=== PATIENT | female | born 1950 | race Two or more races ===

== ENCOUNTER 2023-06-03 20:53 | Inpatient (IN) | payer OTHER ==
[~2023-06-03] VITALS: Ht 162.6 cm; Wt 69.0 kg
[2023-06-03 21:14] VITALS: PULSE 202; RESP 27; O2SAT 95
[2023-06-03] MEDS ORDERED: dilTIAZem 25 MG/5 ML VIAL IV ONE ×2 (21:15→21:30)
[2023-06-03] MEDS ORDERED: dilTIAZem 125mg/125ml BAG KIT 125 ML IV ONE ×2 (21:20→21:30)
[2023-06-03] MEDS: ACCU-CHEK COMFORT CURVE STRIP VI SCH (21:22)
[2023-06-03] MEDS ORDERED: SODIUM CHLORIDE 0.9% 2,000 ML IV ONE (21:30)
[2023-06-03 21:44] LABS: Basophils # (auto) 0 10 ^3/uL (0-0.2); Basophils % (auto) 0.1 % (0.0-2.0); Eosinophils # (auto) 0 10 ^3/uL (0-0.8); Hemoglobin 11.2 g/dL (12.2-16.2); Monocytes # (auto) 0.3 10 ^3/uL (0-1.3)
[2023-06-03 21:45] LABS: Lymphocytes # (auto) 1.4 10 ^3/uL (0.4-5.4); Lymphocytes % (auto) 5.6 % (10.0-50.0); Mean Corpuscular Hemoglobin 22.5 pg (28.0-32.0); Mean Corpuscular Hgb Conc. 30.2 g/dL (32.0-36.0); Mean Corpuscular Volume 74.5 fL (80.0-100.0); Monocytes % (auto) 1.3 % (0.0-12.0); Neutrophils # (auto) 22.6 10 ^3/uL (1.6-8.6); Red Blood Cells 4.97 10^6/uL (4.0-5.20); Red Cell Distribution Width 18.6 % (11.8-14.3); White Blood Cell 24.2 10^3/uL (4.4-10.8)
[2023-06-03 21:59] LABS: Lactic Acid w/Reflex 5.9 mmol/L (0.4-2.0)
[2023-06-03 22:00] LABS: Alanine Aminotransferase 13 U/L (7-40); Alkaline Phosphatase 134 U/L (46-116); Anion Gap 14 (5-15); Aspartate Aminotransferase 10 U/L (13-40); BUN/Creatinine Ratio 24.3 (10.0-20.0); Bilirubin, Total 0.3 mg/dL (0.2-1.0); Blood Urea Nitrogen 28 mg/dL (9-23); Calcium 8.9 mg/dL (8.7-10.4); Carbon Dioxide 16 mmol/L (20-30); Chloride 105 mmol/L (98-107); Magnesium 1.6 mg/dL (1.6-2.6); Potassium 4.2 mmol/L (3.5-5.1); Sodium 135 mmol/L (136-145); Total Protein 5.9 g/dL (5.7-8.2)
[2023-06-03] MEDS ORDERED: PIPERACILLIN-TAZOB 3.375GM 100 ML IV ONE (22:00)
[2023-06-03 22:05] LABS: Glucose 423 mg/dL (74-106)
[2023-06-03 22:12] LABS: INR 1.05 (0.9-1.15); Partial Thromboplastin Time 24.2 SEC (24.5-34.5)
[2023-06-03] MEDS ORDERED: ONDANSETRON HCL 4 MG/2 ML VIAL IV PRN (22:45)
[2023-06-03] MEDS ORDERED: MORPHINE SULFATE INJ 2 MG/ml SYRG IV PRN (22:45)
[2023-06-03] MEDS ORDERED: NITROGLYCERIN 0.4 MG SL TAB SL PRN (22:45)
[2023-06-03] MEDS ORDERED: DEXTROSE (50%) 50ML SYRG IV PRN (22:45)
[2023-06-03] MEDS ORDERED: ACETAMINOPHEN 325 MG TAB PO PRN (22:45)
[2023-06-03 22:53] VITALS: BP 120/95; PULSE 175; RESP 24; TEMP 98.5; O2SAT 96
[2023-06-03] MEDS ORDERED: AZITHROMYCIN 500MG/ 250ML 250 ML IV ONE (23:15)
[2023-06-03 23:23] LABS: Urine Bacteria FEW /hpf (None Seen); Urine Blood Negative /uL (Negative); Urine Clarity Clear (Clear); Urine Color Colorless (Yellow); Urine Protein, UAD Negative (Negative); Urine Specific Gravity 1.009 (1.001-1.035); Urine Urobilinogen Normal (Negative); Urine WBC 1 /hpf (0 - 5)
[2023-06-04] VITALS (8 sets, daily range): BP systolic 123; BP diastolic 68; PULSE 74–90; RESP 18–33; TEMP 97.9; O2SAT 95–100
[2023-06-04] MEDS: InsuLIN REG 1unit/0.01ml Soln (100units/ml) SC SCH ×6 (01:51→23:37)
[2023-06-04] MEDS: ACCU-CHEK COMFORT CURVE STRIP VI SCH ×7 (04:00→23:33)
[2023-06-04 05:07] LABS: Basophils # (auto) 0 10 ^3/uL (0-0.2); Eosinophils # (auto) 0 10 ^3/uL (0-0.8); Lymphocytes # (auto) 1.5 10 ^3/uL (0.4-5.4); Mean Corpuscular Hemoglobin 22.6 pg (28.0-32.0)
[2023-06-04 05:10] LABS: Hematocrit 33.4 % (36.0-46.0); Hemoglobin 10.1 g/dL (12.2-16.2); Lymphocytes % (auto) 6.6 % (10.0-50.0); Mean Corpuscular Hgb Conc. 30.4 g/dL (32.0-36.0); Mean Corpuscular Volume 74.3 fL (80.0-100.0); Monocytes # (auto) 0.9 10 ^3/uL (0-1.3); Monocytes % (auto) 4.1 % (0.0-12.0); Neutrophils # (auto) 19.8 10 ^3/uL (1.6-8.6); Neutrophils % (auto) 89.3 % (37.0-80.0); Red Blood Cells 4.49 10^6/uL (4.0-5.20); Red Cell Distribution Width 18.5 % (11.8-14.3); White Blood Cell 22.2 10^3/uL (4.4-10.8)
[2023-06-04] MEDS ORDERED: ALBUMIN 25% 100 ML IV ONE (05:30)
[2023-06-04 05:32] LABS: Alanine Aminotransferase 14 U/L (7-40); Albumin 3.4 g/dL (3.2-4.8); Alkaline Phosphatase 111 U/L (46-116); Anion Gap 12 (5-15); Aspartate Aminotransferase < 8 U/L (13-40); BUN/Creatinine Ratio 28.6 (10.0-20.0); Bilirubin, Total 0.2 mg/dL (0.2-1.0); Blood Urea Nitrogen 28 mg/dL (9-23); Calcium 8.3 mg/dL (8.7-10.4); Carbon Dioxide 18 mmol/L (20-30); Chloride 111 mmol/L (98-107); Glucose 283 mg/dL (74-106); Potassium 4.1 mmol/L (3.5-5.1); Sodium 141 mmol/L (136-145)
[2023-06-04] MEDS: LEVOTHYROXINE SODIUM 25 MCG TAB PO SCH (06:58)
[2023-06-04] MEDS ORDERED: PHENYLEPHRINE IV 250 ML IV SCH (07:00)
[2023-06-04] MEDS ORDERED: LEVOTHYROXINE SODIUM 25 MCG TAB PO SCH (07:00)
[2023-06-04] MEDS ORDERED: MAGNESIUM SULFATE 1GM/100ML 100 ML IV ONE (07:30)
[2023-06-04] MEDS ORDERED: AMIODARONE BOLUS KIT 100 ML IV ONE (07:30)
[2023-06-04 07:45] LABS: Triglycerides 170 mg/dL (< 150)
[2023-06-04] MEDS ORDERED: AMIODARONE 450mg/250ml AE 250 ML IV SCH (07:45)
[2023-06-04 07:46] LABS: LDL Cholesterol 62 mg/dL (< 100)
[2023-06-04 07:47] LABS: Cholesterol 130 mg/dL (< 200); HDL Cholesterol 52 mg/dL (40-59)
[2023-06-04] MEDS ORDERED: cefTRIAXone 1GM/50ML D5W 50 ML IV SCH (09:00)
[2023-06-04] MEDS: ENOXAPARIN SOD 100 MG/1 ML SYRINGE SC SCH ×2 (09:52→23:10)
[2023-06-04] MEDS ORDERED: dilTIAZem 120MG ER CAP PO SCH (10:00)
[2023-06-04] MEDS ORDERED: ENOXAPARIN SOD 40 MG/0.4 ML SYRINGE SC SCH (10:00)
[2023-06-04] MEDS ORDERED: ENOXAPARIN SOD 30 MG/0.3 ML SYRINGE SC SCH (10:00)
[2023-06-04] MEDS: TACROLIMUS 1 MG CAP PO SCH ×2 (10:38→23:13)
[2023-06-04] MEDS: MYCOPHENOLATE 250 MG CAP PO SCH ×2 (10:39→23:20)
[2023-06-04] MEDS ORDERED: ALBUTEROL MEDNEB 2.5 mg/3ml NEB ONE ×2 (13:33→19:02)
[2023-06-04] MEDS: ALBUTEROL SULF 2.5 MG/0.5ML(0.5%) NEB SOLN NEB PRN ×2 (13:35→19:15)
[2023-06-04] MEDS: AMIODARONE 450mg/250ml AE 250 ML IV SCH (14:03)
[2023-06-04] MEDS ORDERED: CEFEPIME 1GM/ 50ML 50 ML IV ONE (14:30)
[2023-06-04] MEDS ORDERED: DEXTROSE (50%) 50ML SYRG IV PRN (14:30)
[2023-06-04] MEDS ORDERED: VANCOMYCIN PER PHARMACY 0 MG IV SCH (14:30)
[2023-06-04] MEDS: VANCOMYCIN 1GM/250ML 250 ML IV SCH (15:58)
[2023-06-04] MEDS ORDERED: NITROGLYCERIN 2% OINT 1GM PKG TD ONE (21:00)
[2023-06-04] MEDS ORDERED: AZITHROMYCIN 500MG/ 250ML 250 ML IV SCH (22:00)
[2023-06-04] MEDS: ATORVASTATIN 20 MG TAB PO SCH (23:11)
[2023-06-04] MEDS: CEFEPIME 1GM/ 50ML 50 ML IV SCH (23:59)
[2023-06-05] VITALS (8 sets, daily range): BP systolic 121–149; BP diastolic 72–87; PULSE 71–87; RESP 18–20; TEMP 97.4–98.6; O2SAT 94–100
[2023-06-05] MEDS: AMIODARONE 450mg/250ml AE 250 ML IV SCH (01:51)
[2023-06-05] MEDS: CEFEPIME 1GM/ 50ML 50 ML IV SCH ×4 (05:25→22:23)
[2023-06-05] MEDS: VANCOMYCIN 1GM/250ML 250 ML IV SCH ×2 (06:22→23:00)
[2023-06-05] MEDS: LEVOTHYROXINE SODIUM 25 MCG TAB PO SCH (06:23)
[2023-06-05 06:44] LABS: Basophils # (auto) 0 10 ^3/uL (0-0.2); Eosinophils # (auto) 0.3 10 ^3/uL (0-0.8); Hemoglobin 10.6 g/dL (12.2-16.2); Nucleated Red Blood Cells % 0.1 %; Red Cell Distribution Width 18.6 % (11.8-14.3)
[2023-06-05] MEDS: InsuLIN REG 1unit/0.01ml Soln (100units/ml) SC SCH ×4 (06:45→22:29)
[2023-06-05] MEDS: ACCU-CHEK COMFORT CURVE STRIP VI SCH ×5 (06:45→22:30)
[2023-06-05 06:47] LABS: Basophils % (auto) 0.1 % (0.0-2.0); Eosinophils % (auto) 1.6 % (0.0-7.0); Hematocrit 34.6 % (36.0-46.0); Lymphocytes # (auto) 2.5 10 ^3/uL (0.4-5.4); Lymphocytes % (auto) 15.4 % (10.0-50.0); Mean Corpuscular Hemoglobin 22.7 pg (28.0-32.0); Mean Corpuscular Hgb Conc. 30.8 g/dL (32.0-36.0); Mean Corpuscular Volume 73.6 fL (80.0-100.0); Monocytes # (auto) 0.9 10 ^3/uL (0-1.3); Monocytes % (auto) 5.8 % (0.0-12.0); Neutrophils # (auto) 12.4 10 ^3/uL (1.6-8.6); Neutrophils % (auto) 77.1 % (37.0-80.0); Red Blood Cells 4.69 10^6/uL (4.0-5.20)
[2023-06-05 07:00] LABS: Alanine Aminotransferase 12 U/L (7-40); Albumin 3.8 g/dL (3.2-4.8); Alkaline Phosphatase 83 U/L (46-116); Anion Gap 10 (5-15); Aspartate Aminotransferase 12 U/L (13-40); BUN/Creatinine Ratio 15.6 (10.0-20.0); Bilirubin, Total 0.6 mg/dL (0.2-1.0); Blood Urea Nitrogen 14 mg/dL (9-23); Calcium 8.7 mg/dL (8.5-10.1); Carbon Dioxide 24 mmol/L (20-30); Chloride 108 mmol/L (98-107); Glucose 130 mg/dL (74-106); Potassium 3.3 mmol/L (3.5-5.1); Sodium 142 mmol/L (136-145); Total Protein 5.5 g/dL (5.7-8.2)
[2023-06-05] MEDS ORDERED: POTASSIUM EFFERVESENT TAB 25 MEQ PO ONE (08:00)
[2023-06-05] MEDS: AMIODARONE HCL 200 MG TAB PO SCH ×2 (08:42→22:02)
[2023-06-05] MEDS: MYCOPHENOLATE 250 MG CAP PO SCH ×2 (08:42→22:00)
[2023-06-05] MEDS: TACROLIMUS 1 MG CAP PO SCH ×2 (08:43→22:00)
[2023-06-05] MEDS: METOPROLOL TARTRATE 25 MG TAB PO SCH ×2 (08:43→21:57)
[2023-06-05] MEDS: APIXABAN 5 MG TAB PO SCH ×2 (08:43→22:04)
[2023-06-05] MEDS ORDERED: AZIT-81 PO (16:30)
[2023-06-05] MEDS: ATORVASTATIN 20 MG TAB PO SCH (21:57)
[2023-06-06 05:00] VITALS: BP 125/81; PULSE 85; RESP 17; TEMP 97.3; O2SAT 95
[2023-06-06] MEDS: CEFEPIME 1GM/ 50ML 50 ML IV SCH (05:11)
[2023-06-06] MEDS: ACCU-CHEK COMFORT CURVE STRIP VI SCH ×2 (06:27→11:30)
[2023-06-06] MEDS: LEVOTHYROXINE SODIUM 25 MCG TAB PO SCH (06:27)
[2023-06-06] MEDS: InsuLIN REG 1unit/0.01ml Soln (100units/ml) SC SCH ×2 (06:32→11:30)
[2023-06-06 08:00] VITALS: PULSE 79; PULSE 80; RESP 17; O2SAT 100
[2023-06-06 08:57] VITALS: BP 136/94; PULSE 79; RESP 17; TEMP 97.9; O2SAT 100
[2023-06-06] MEDS: APIXABAN 5 MG TAB PO SCH ×2 (09:33→09:40)
[2023-06-06] MEDS: METOPROLOL TARTRATE 25 MG TAB PO SCH (09:33)
[2023-06-06] MEDS: AMIODARONE HCL 200 MG TAB PO SCH (09:35)
[2023-06-06] MEDS: TACROLIMUS 1 MG CAP PO SCH (09:41)
[2023-06-06] MEDS: MYCOPHENOLATE 250 MG CAP PO SCH (09:41)
[2023-06-06 10:51] VITALS: BP 136/94; PULSE 79; TEMP 36.6
[2023-06-06 13:00] VITALS: BP 117/73; PULSE 84; RESP 18; TEMP 98.4; O2SAT 97
== END 2023-06-06 14:15 | disposition home or self-care (01) | DRG 871 ==
LOC: EDBD 20:53 → ER 20:53 → TELE 22:41 → TELE-CENTR 06-04 21:45
PROVIDERS: ADMIT Nurse Practitioner; ATTEND Internal Medicine
DX: A41.9 Sepsis, unspecified organism (principal); J15.69 Pneumonia due to other Gram-negative bacteria; J96.20 Acute and chronic respiratory failure, unspecified whether with hypoxia or hypercapnia; J15.9 Unspecified bacterial pneumonia; J44.0 Chronic obstructive pulmonary disease with (acute) lower respiratory infection; I13.0 Hypertensive heart and chronic kidney disease with heart failure and stage 1 through stage 4 chronic kidney disease, or unspecified chronic kidney disease; M33.90 Dermatopolymyositis, unspecified, organ involvement unspecified; E86.0 Dehydration; K74.60 Unspecified cirrhosis of liver; N18.9 Chronic kidney disease, unspecified; E03.9 Hypothyroidism, unspecified; E11.22 Type 2 diabetes mellitus with diabetic chronic kidney disease; E78.5 Hyperlipidemia, unspecified; I50.9 Heart failure, unspecified; J84.10 Pulmonary fibrosis, unspecified; I48.0 Paroxysmal atrial fibrillation; Z99.81 Dependence on supplemental oxygen
CPT/HCPCS: 36415; 71045; 71250; 80053; 80061; 81001; 82962; 83036; 83605; 83735; 83880; 84443; 84484; 85025; 85379; 85610; 85730; 87040; 87081; 93005; 93306; 94640; G0378; J0696; J1815; J2543; J7507; J7517; P9047

== ENCOUNTER 2024-04-28 15:41 | Inpatient (IN) | payer OTHER ==
[~2024-04-28] VITALS: Ht 165.1 cm; Wt 63.3 kg
[~2024-04-28 15:41] MED LIST: ALBU108A5 IN; AZIT-185 PO; BENZ100C97 PO; FLUT250M2 INH; GUAI100S6 PO; INSREG3 IV; IPRIH INH; LEVO50TA7 PO; METF-370 PO; MYCO500T PO; NALO4SPR2; OMEP20TA PO; PRE5T PO; TACR1GRA PO; URSO1TAB7 PO
[2024-04-28] MEDS: cefTRIAXone 1GM/50ML D5W 50 ML IV ONE (16:15)
[2024-04-28 16:46] VITALS: PULSE 107; RESP 44; O2SAT 96
[2024-04-28 17:02] LABS: Basophils # (auto) 0.1 10 ^3/uL (0-0.2); Eosinophils # (auto) 0.5 10 ^3/uL (0-0.8); Eosinophils % (auto) 4.3 % (0.0-7.0); Hemoglobin 12.1 g/dL (12.2-16.2); Lymphocytes # (auto) 2.3 10 ^3/uL (0.4-5.4); Lymphocytes % (auto) 21.9 % (10.0-50.0); Mean Corpuscular Hemoglobin 25.2 pg (28.0-32.0); Mean Corpuscular Hgb Conc. 32.5 g/dL (32.0-36.0); Mean Corpuscular Volume 77.3 fL (80.0-100.0); Monocytes # (auto) 0.6 10 ^3/uL (0-1.3); Monocytes % (auto) 5.8 % (0.0-12.0); Neutrophils # (auto) 7.1 10 ^3/uL (1.6-8.6); Nucleated Red Blood Cells % 0.2 %; Platelet Count (auto) 274 10^3/uL (140-450); Red Blood Cells 4.79 10^6/uL (4.0-5.20); Red Cell Distribution Width 17.4 % (11.8-14.3); White Blood Cell 10.6 10^3/uL (4.4-10.8)
[2024-04-28 17:13] LABS: Albumin 3.8 g/dL (3.2-4.8); Alkaline Phosphatase 148 U/L (46-116); Anion Gap 10 (5-15); Aspartate Aminotransferase 47 U/L (13-40); Carbon Dioxide 23 mmol/L (20-31); Chloride 105 mmol/L (98-107); Glucose 104 mg/dL (74-106); Magnesium 1.8 mg/dL (1.6-2.6); Sodium 138 mmol/L (136-145)
[2024-04-28 17:14] LABS: Bilirubin, Total 0.3 mg/dL (0.2-1.0)
[2024-04-28 17:15] LABS: Urine Bacteria None Seen /hpf (None Seen)
[2024-04-28 17:16] LABS: Alanine Aminotransferase 15 U/L (7-40); BUN/Creatinine Ratio 15.3 (10.0-20.0); Blood Urea Nitrogen 11 mg/dL (9-23); Potassium 4.2 mmol/L (3.5-5.1)
[2024-04-28 17:18] LABS: INR 1.22 (0.9-1.15); Partial Thromboplastin Time 37.5 SEC (24.5-34.5); Prothrombin Time 12.7 sec (9.3-11.8)
[2024-04-28 17:27] LABS: Urine Blood Negative /uL (Negative); Urine Clarity Clear (Clear); Urine Color Yellow (Yellow); Urine Mucus FEW (None Seen); Urine Protein, UAD TRACE (Negative); Urine Specific Gravity 1.018 (1.001-1.035); Urine Urobilinogen Normal (Negative); Urine WBC 2 /hpf (0 - 5); Urine pH 6.5 (5.0-9.0)
[2024-04-28 18:15] LABS: COVID19 ANTIGEN SOFIA FIA NEGATIVE (NEGATIVE); Rapid Influenza A Negative (Negative); Rapid Influenza B Negative (Negative)
[2024-04-28] MEDS: ALBUTEROL SULF 2.5 MG/0.5ML(0.5%) NEB SOLN HHN ONE (20:07)
[2024-04-28] MEDS: IPRATROPIUM BROM 0.5 MG/2.5ML INH SOL HHN ONE (20:07)
[2024-04-28] MEDS: methylPREDNISolone SOD SUCC 125 MG/2 ML VL IV ONE (20:31)
[2024-04-28] MEDS: ONDANSETRON HCL 4 MG/2 ML VIAL IV ONE (20:35)
[2024-04-28] MEDS: MORPHINE SULFATE 4 MG/ML SYR/VIAL IV ONE (20:35)
[2024-04-29] VITALS (7 sets, daily range): BP systolic 106–144; BP diastolic 59–80; PULSE 62–108; RESP 16–25; TEMP 97.5–99; O2SAT 95–100
[2024-04-29] MEDS ORDERED: ONDANSETRON HCL 4 MG/2 ML VIAL IV PRN (01:00)
[2024-04-29] MEDS ORDERED: NITROGLYCERIN 0.4 MG SL TAB SL PRN (01:00)
[2024-04-29] MEDS ORDERED: HYDROcodone-ACET 5/325MG TAB PO PRN (01:00)
[2024-04-29] MEDS ORDERED: MORPHINE SULFATE INJ 2 MG/ml SYRG IV PRN (01:00)
[2024-04-29] MEDS ORDERED: DOCUSATE SOD 100 MG CAP PO PRN (01:00)
[2024-04-29] MEDS: ALBUTEROL SULF 2.5 MG/0.5ML(0.5%) NEB SOLN NEB ONE (01:03)
[2024-04-29] MEDS: IPRATROPIUM BROM 0.5 MG/2.5ML INH SOL NEB ONE (01:03)
[2024-04-29] MEDS: DOXYCYCLINE 100MG/250ML 250 ML IV SCH (01:42)
[2024-04-29 04:23] LABS: Basophils # (auto) 0 10 ^3/uL (0-0.2); Basophils % (auto) 0.1 % (0.0-2.0); Eosinophils # (auto) 0 10 ^3/uL (0-0.8); Eosinophils % (auto) 0.1 % (0.0-7.0); Hemoglobin 12.1 g/dL (12.2-16.2); Lymphocytes # (auto) 0.4 10 ^3/uL (0.4-5.4); Lymphocytes % (auto) 6.8 % (10.0-50.0); Mean Corpuscular Hemoglobin 24.4 pg (28.0-32.0); Mean Corpuscular Hgb Conc. 29.4 g/dL (32.0-36.0); Monocytes # (auto) 0.1 10 ^3/uL (0-1.3); Monocytes % (auto) 0.9 % (0.0-12.0); Neutrophils # (auto) 5.4 10 ^3/uL (1.6-8.6); Neutrophils % (auto) 92.1 % (37.0-80.0); Nucleated Red Blood Cells % 0.1 %; Platelet Count (auto) 208 10^3/uL (140-450); Red Blood Cells 4.94 10^6/uL (4.0-5.20); Red Cell Distribution Width 18.8 % (11.8-14.3); White Blood Cell 5.9 10^3/uL (4.4-10.8)
[2024-04-29 04:36] LABS: Alanine Aminotransferase 13 U/L (7-40); Alkaline Phosphatase 146 U/L (46-116); Anion Gap 11 (5-15); BUN/Creatinine Ratio 10.6 (10.0-20.0); Blood Urea Nitrogen 9 mg/dL (9-23); Calcium 9.1 mg/dL (8.7-10.4); Carbon Dioxide 21 mmol/L (20-31); Chloride 105 mmol/L (98-107); Glucose 215 mg/dL (74-106); Potassium 4.2 mmol/L (3.5-5.1); Sodium 137 mmol/L (136-145)
[2024-04-29 04:37] LABS: Albumin 3.8 g/dL (3.2-4.8); Aspartate Aminotransferase 30 U/L (13-40); Bilirubin, Total 0.2 mg/dL (0.2-1.0); Total Protein 6.5 g/dL (5.7-8.2)
[2024-04-29] MEDS: methylPREDNISolone SOD SUCC 40 MG/ML VL IV SCH (05:34)
[2024-04-29] MEDS: LEVOTHYROXINE SODIUM 50 MCG TAB PO SCH (05:43)
[2024-04-29] MEDS: SODIUM CHLOR 0.9% PF (SALINE LOCK) 10ML VIAL/SYR IV SCH (05:49)
[2024-04-29] MEDS: FAMOTIDINE (10MG/ML) 2ML VL IV SCH (10:00)
[2024-04-29] MEDS: ASPirin 81 mg TAB PO SCH (10:00)
[2024-04-29] MEDS: ACETAMINOPHEN 325 MG TAB PO PRN (18:41)
[2024-04-29] MEDS: IPRATROPIUM BROM 0.5 MG/2.5ML INH SOL NEB SCH (18:54)
[2024-04-30] VITALS (13 sets, daily range): BP systolic 101–132; BP diastolic 63–66; PULSE 52–91; RESP 16–24; TEMP 97.6–98.1; O2SAT 94–100
[2024-04-30 06:08] LABS: Basophils # (auto) 0 10 ^3/uL (0-0.2); Basophils % (auto) 0.1 % (0.0-2.0); Eosinophils # (auto) 0 10 ^3/uL (0-0.8); Hemoglobin 11.6 g/dL (12.2-16.2); Monocytes # (auto) 0.2 10 ^3/uL (0-1.3); Red Cell Distribution Width 17.1 % (11.8-14.3)
[2024-04-30 06:11] LABS: Hematocrit 35.1 % (36.0-46.0); Lymphocytes # (auto) 1.2 10 ^3/uL (0.4-5.4); Lymphocytes % (auto) 11.7 % (10.0-50.0); Mean Corpuscular Hemoglobin 25.3 pg (28.0-32.0); Mean Corpuscular Hgb Conc. 32.9 g/dL (32.0-36.0); Mean Corpuscular Volume 76.8 fL (80.0-100.0); Monocytes % (auto) 1.7 % (0.0-12.0); Neutrophils # (auto) 8.8 10 ^3/uL (1.6-8.6); Neutrophils % (auto) 86.5 % (37.0-80.0); Platelet Count (auto) 240 10^3/uL (140-450); Red Blood Cells 4.57 10^6/uL (4.0-5.20); White Blood Cell 10.2 10^3/uL (4.4-10.8)
[2024-04-30 06:32] LABS: Alanine Aminotransferase < 9 U/L (7-40); Alkaline Phosphatase 125 U/L (46-116); Anion Gap 9 (5-15); BUN/Creatinine Ratio 13.9 (10.0-20.0); Blood Urea Nitrogen 10 mg/dL (9-23); Calcium 9.4 mg/dL (8.7-10.4); Carbon Dioxide 22 mmol/L (20-31); Chloride 104 mmol/L (98-107); Glucose 183 mg/dL (74-106); Potassium 4.4 mmol/L (3.5-5.1); Sodium 135 mmol/L (136-145)
[2024-04-30 06:33] LABS: Albumin 3.9 g/dL (3.2-4.8); Aspartate Aminotransferase 16 U/L (13-40); Bilirubin, Total 0.3 mg/dL (0.2-1.0)
[2024-04-30 06:34] LABS: Total Protein 6.2 g/dL (5.7-8.2)
[2024-04-30] MEDS: ALBUTEROL SULF 2.5 MG/0.5ML(0.5%) NEB SOLN NEB PRN (06:53)
[2024-04-30] MEDS ORDERED: DEXTROSE (50%) 50ML SYRG IV PRN (10:00)
[2024-04-30] MEDS: ACCU-CHEK COMFORT CURVE STRIP VI SCH (11:50)
[2024-04-30] MEDS: DABIGATRAN 75 MG CAP PO SCH (11:50)
[2024-04-30] MEDS: InsuLIN REG 1unit/0.01ml Soln (100units/ml) SC SCH (12:16)
[2024-04-30] MEDS ORDERED: InsuLIN REG 1unit/0.01ml Soln (100units/ml) SC SCH (22:00)
== END 2024-04-30 17:00 | disposition short-term general hospital (02) | DRG 189 ==
LOC: EDBD 15:41 → ER 15:41 → TELE 04-29 01:08 → TELE-EAST 04-29 10:27
PROVIDERS: ADMIT Nurse Practitioner Family; ATTEND Family Medicine
DX: J96.01 Acute respiratory failure with hypoxia (principal); J15.69 Pneumonia due to other Gram-negative bacteria; J15.9 Unspecified bacterial pneumonia; E44.0 Moderate protein-calorie malnutrition; K21.9 Gastro-esophageal reflux disease without esophagitis; Z20.822 Contact with and (suspected) exposure to COVID-19; J84.10 Pulmonary fibrosis, unspecified; K74.60 Unspecified cirrhosis of liver; F41.9 Anxiety disorder, unspecified; E03.9 Hypothyroidism, unspecified; E11.65 Type 2 diabetes mellitus with hyperglycemia; Z87.442 Personal history of urinary calculi; Z86.711 Personal history of pulmonary embolism; Z90.710 Acquired absence of both cervix and uterus; Z88.1 Allergy status to other antibiotic agents; Z68.23 Body mass index [BMI] 23.0-23.9, adult; M19.90 Unspecified osteoarthritis, unspecified site
CPT/HCPCS: 36415; 71045; 71250; 80053; 81001; 82962; 83605; 83735; 83880; 84443; 84484; 85025; 85379; 85610; 85730; 87040; 87081; 87426; 87804; 94640; 96365; 96366; 96375; 99291; G0378; J1815; J2405; J3490

== ENCOUNTER 2024-08-04 10:37 | Inpatient (IN) | payer OTHER ==
[~2024-08-04] VITALS: Ht 165.1 cm; Wt 55.8 kg
[2024-08-04] MEDS: ALBUTEROL SULF 2.5 MG/0.5ML(0.5%) NEB SOLN NEB ONE (11:31)
[2024-08-04] MEDS: IPRATROPIUM BROM 0.5 MG/2.5ML INH SOL NEB ONE (11:31)
--- NOTE | 2024-08-04 11:36 | ED.PDOC ---
SOB-HPI HPI Comments 74 Y F with PMHX of PE on home O2, liver disease, GERD, kidney stones brought in by EMS with CC of SOB. Patient states, that she has been experiencing SOB x1 week with associated symptoms of chest pain, cough, and fever. History is limited due to severity of symptoms, as patient is repetitively coughing. Chief Complaint: Shortness of Breath Time Seen by MD: 11:00 Primary Care Provider: ANIA Bui notes: Nurses Notes, Medications, Allergies Information Source: Patient, Emergency Med Personnel Mode of Arrival: EMS Severity: Mild Timing: Weeks Duration: Since onset PE Risk Factors: None History of: None Prehospital treatment: None Associated Signs and Symptoms: Cough, Chest Pain Past Medical History PAST MEDICAL HISTORY: Arthritis, GERD, Kidney Stones, Liver, MRSA, PE Surgical History: Hysterectomy CLINICAL BIOSTATISTICIAN History: No Pertinent CLINICAL BIOSTATISTICIAN History Family History Family History: Unknown Social History Alcohol: Denies ETOH Use Drugs: Denies Drug Use Lives In: Home Constitutional: reports: fever; denies: chills, diaphoresis, fatigue, malaise, sweats, weakness, others EENTM: denies: blurred vision, double vision, ear bleeding, ear discharge, ear drainage, ear pain, ear ringing, eye pain, eye redness, hearing loss, mouth pain, mouth swelling, nasal discharge, nose bleeding, nose congestion, nose pain, photophobia, tearing, throat pain, throat swelling, voice changes, others Respiratory: reports: cough; denies: hemoptysis, orthopnea, SOB at rest, shortness of breath, SOB with excertion, stridor, wheezing, others Cardiovascular: reports: chest pain; denies: dizzy spells, diaphoresis, Dyspnea on exertion, edema, irregular heart beat, left arm pain, lightheadedness, palpitations, PND, syncope, others Gastrointestinal: denies: abdomen distended, abdominal pain, blood streaked bowels, constipated, diarrhea, dysphagia, difficulty swallowing, hematemesis, melena, nausea, poor appetite, poor fluid intake, rectal bleeding, rectal pain, vomiting, others Genitourinary: denies: abnormal vagina bleeding, burning, dyspareunia, dysuria, flank pain, frequency, hematuria, incontinence, pain, , vagina discharge, urgency, others Neurological: denies: dizziness, fainting, headache, left sided numbness, left sided weakness, numbness, paresthesia, pre-existing deficit, right sided numbness, right sided weakness, seizure, speech problems, tingling, tremors, weakness, others Musculoskeletal: denies: back pain, gout, joint pain, joint swelling, muscle pain, muscle stiffness, neck pain, others Integumetry: denies: bruises, change in color, change in hair/nails, dryness, laceration, lesions, lumps, rash, wounds, others Allergic/Immunocompromised: denies: Difficulty Healing, Frequent Infections, Hives, Itching, others Hematologic/Lymphatic: denies: anemia, blood clots, easy bleeding, easy bruising, swollen glands, others Endocrine: denies: excessive hunger, excessive sweating, excessive thirst, excessive urination, flushing, intolerance to cold, intolerance to heat, unexplained weight gain, unexplained weight loss, others Psychiatric: denies: anxiety, bipolar disorder, depression, hopeless, panic disorder, schizophrenia, sleepless, suicidal, others All Other Systems: Reviewed and Negative Physical Exam General Appearance: Moderate Distress HEENT: Other (Pupils symmetric, face symmetric, dry mucous membranes) Neck: Full Range of Motion, Normal Inspection Respiratory: Accessory Muscle Use, Crackles, Rales, Respiratory Distress Cardiovascular: No Edema, No JVD, Tachycardia Breast Exam: Deferred Gastrointestinal: Non Tender, Soft Genitalia: Deferred Pelvic: Deferred Rectal: Deferred Extremities: Normal inspection, Normal range of motion, Non-tender, No pedal edema Neurologic: Alert, Other (Moves all extremities, no gross focal deficit, appears anxious) Cerebellar Function: NOT DONE Reflexes: NOT DONE Skin: Dry, Pallor, Warm Lymphatic: NOT DONE EKG EKG : Comments Sinus tach, rate 134, normal intervals, left axis deviation, old inferior or anterolateral infarct, nonspecific T changes. Was a procedure done? Was a procedure done?: No Differential Dx Differential Diagnosis: Bronchitis, CHF, COPD, Hyperventilation, Myocardial infarction, Panic Attack, Pneumonia, Pneumothorax, Respiratory Distress, Sinusitis, URI X-Ray, Labs, Meds, VS Vital Signs Date Time Temp Pulse Resp B/P (MAP) Pulse Ox O2 Delivery O2 Flow Rate FiO2 08/04/24 20:03 97.9 111 16 96/57 (70) 96 97.9 08/04/24 17:00 106 20 112/75 (87) 99 08/04/24 16:13 109 18 98/56 (70) 98 08/04/24 15:01 120 16 124/82 (96) 08/04/24 13:08 129 24 117/72 (87) 100 08/04/24 11:38 129 35 122/80 (94) 99 08/04/24 11:38 129 33 99 Nasal Cannula* 4 36 08/04/24 11:31 20 100 Nasal Cannula* 4 36 08/04/24 10:41 134 08/04/24 10:38 97.9 137 40 88/57 (67) 92 08/04/24 10:38 40 Nasal Cannula* 4 36 08/04/24 10:38 Nasal Cannula* 4 36 Lab Test 08/04/24 17:00 08/04/24 14:30 08/04/24 13:26 08/04/24 11:45 Range/Units Urine Color Yellow Yellow Urine Clarity Clear Clear Urine pH 6.5 5.0-9.0 Urine Specific [place] 1.021 1.001-1.035 Urine Protein Trace H Negative Urine Ketones Negative Negative Urine Blood Negative Negative /uL Urine Nitrite Negative Negative Urine Bilirubin Negative Negative Urine Urobilinogen Normal Negative mg/dL Urine Leukocyte Esterase 3+ Negative /uL Urine RBC 4 0 - 4 /hpf Urine WBC 39 0 - 5 /hpf Urine Squamous Epithelial Cells Few <5 /hpf Urine Bacteria Few H None Seen /hpf Urine Mucus Few None Seen Urine Glucose Normal Normal mg/dL Troponin I High Sensitivity 67 *H 73 *H </=34 ng/L Lactic Acid Level 2.2 *H 0.4-2.0 mmol/L Influenza Type A Antigen Negative Negative Influenza Type B Antigen Negative Negative SARS-CoV-2 Antigen (Rapid) Negative NEGATIVE Test 08/04/24 11:42 Range/Units White Blood Count 16.0 H 4.4-10.8 10^3/uL Red Blood Count 5.63 H 4.0-5.20 10^6/uL Hemoglobin 13.6 12.2-16.2 g/dL Hematocrit 42.6 36.0-46.0 % Mean Corpuscular Volume 75.7 L 80.0-100.0 fL Mean Corpuscular Hemoglobin 24.2 L 28.0-32.0 pg Mean Corpuscular Hemoglobin Concent 31.9 L 32.0-36.0 g/dL Red Cell Distribution Width 17.5 H 11.8-14.3 % Platelet Count 346 140-450 10^3/uL Mean Platelet Volume 8.6 6.9-10.8 fL Neutrophils (%) (Auto) 87.8 H 37.0-80.0 % Lymphocytes (%) (Auto) 5.9 L 10.0-50.0 % Monocytes (%) (Auto) 4.9 0.0-12.0 % Eosinophils (%) (Auto) 0.7 0.0-7.0 % Basophils (%) (Auto) 0.7 0.0-2.0 % Neutrophils # (Auto) 14.0 H 1.6-8.6 10 ^3/uL Lymphocytes # (Auto) 0.9 0.4-5.4 10 ^3/uL Monocytes # (Auto) 0.8 0-1.3 10 ^3/uL Eosinophils # (Auto) 0.1 0-0.8 10 ^3/uL Basophils # (Auto) 0.1 0-0.2 10 ^3/uL Nucleated Red Blood Cells 0.1 % Platelet Estimate Adequate Clumped Platelets None Giant Platelets Hypochromasia (manual) Slight Microcytosis Slight Sodium Level 134 L 136-145 mmol/L Potassium Level 4.3 3.5-5.1 mmol/L Chloride Level 100 98-107 mmol/L Carbon Dioxide Level 26 20-31 mmol/L Anion Gap 8 5-15 Blood Urea Nitrogen 8 L 9-23 mg/dL Creatinine 0.61 0.550-1.02 mg/dL Glomerular Filtration Rate Calc 95 >90 mL/min BUN/Creatinine Ratio 13.1 10.0-20.0 Serum Glucose 105 74-106 mg/dL Lactic Acid Level 2.6 *H 0.4-2.0 mmol/L Calcium Level 9.0 8.7-10.4 mg/dL Total Bilirubin 0.4 0.2-1.0 mg/dL Aspartate Amino Transferase (AST) 91 H 13-40 U/L Alanine Aminotransferase (ALT) 25 7-40 U/L Alkaline Phosphatase 308 H 46-116 U/L Troponin I High Sensitivity 73 *H </=34 ng/L B-Type Natriuretic Peptide 102.14 0-100 pg/mL Total Protein 6.7 5.7-8.2 g/dL Albumin 3.2 3.2-4.8 g/dL Current Medications Medications (Trade) Dose Ordered Sig/Isabel Route Start Time Stop Time Status Last Admin Albuterol (Ventolin Medneb) 5 mg ONCE ONCE NEB 08/04/24 11:00 08/04/24 11:03 DC 08/04/24 11:31 Ipratropium [place] (Atrovent Medneb) 0.5 mg ONCE ONCE NEB 08/04/24 11:00 08/04/24 11:03 DC 08/04/24 11:31 Methylprednisolone Sodium Succinate (Solu Medrol) 125 mg ONCE ONCE IV 08/04/24 11:00 08/04/24 11:03 DC 08/04/24 12:02 Ceftriaxone Sodium 50 ml @ 100 mls/hr ONCE ONCE IV 08/04/24 11:00 08/04/24 11:29 DC 08/04/24 12:02 Azithromycin 250 ml @ 125 mls/hr ONCE ONCE IV 08/04/24 11:00 08/04/24 12:59 DC 08/04/24 12:41 Sodium Chloride 1,000 ml @ 1,000 mls/hr Q1H ONCE IV 08/04/24 14:00 08/04/24 14:59 DC 08/04/24 14:00 Lidocaine HCl (Xylocaine 2% Viscous) 10 ml ONCE ONCE PO 08/04/24 16:15 08/04/24 16:25 DC 08/04/24 16:15 [place] [id number] Ph: [phone] DIAGNOSTIC IMAGING Diagnostic Imaging Report : [id number] Signed PATIENT: TATUM MORA ACCT: [id number] UNIT: [id number] : 1950 LOC: ER ROOM / BED: / AGE / SEX: 74 / F ADM STATUS: REG ER SERVICE 1100 ORDERING PHYSICIAN: FEI MUNOZ MD PROCEDURE(s): CXRP - CHEST PORTABLE REASON: sob ORDER NUMBER(s): [id number], ACCESSION NUMBER(s): [id number] CHEST RADIOGRAPH Indication: sob Technique: Single frontal view of the chest was obtained Comparison: XY CHEST PORTABLE on DOS: 04/28/24, XY CHEST PORTABLE on DOS: 06/03/23 FINDINGS: Lines and Tubes: None Lungs: Multifocal bilateral alveolar and interstitial opacities. Pleura: No effusion. No pneumothorax. Cardiomediastinal contours: Unremarkable Bones: No acute osseous abnormality. IMPRESSION: 1. Multifocal bilateral interstitial and alveolar opacities, slightly worsened compared to 04/28/2024. HS:Y ATED BY: JANE COLE DO DICTATED DATE/TIME: 08/04/24 1139 SIGNED BY: JANE COLE DO SIGNED DATE/TIME: 08/04/24 113 CC: X-Ray, Labs, Meds, VS Comment 74-year-old female with a history of PE on home O2, liver disease, GERD and kidney stones brought in by EMS from home complaining of shortness a breath, cou gh, fever and congestion Vitals remarkable for heart rate 137, respiratory rate 40, BP 88/57, oxygen saturation 92% on 4 L nasal cannula Exam remarkable for tachycardia, respiratory distress, bilateral scattered rales/crackles, anxiety EKG sinus tach, nonspecific T changes Chest x-ray IMPRESSION: 1. Multifocal bilateral interstitial and alveolar opacities, slightly worsened compared to 04/28/2024. CBC remarkable for WBC 16, basic metabolic panel remarkable for sodium 134, lactate 2.6, troponin 73, BNP 102.14, influenza and COVID tests negative, no other abnormalities of acute significance Patient treated with the following in the ED: Albuterol 5 mg/Atrovent 0.5 mg nebulized, Solu-Medrol 125 mg IV, Rocephin 1 g IV, Zithromax 500 mg IV, 1 L 0.9 normal saline IV bolus On re-evaluation, patient is in less respiratory distress. Oxygen saturation is 100% on 5 L nasal cannula, blood pressure 22/80, heart rate 129 Plan is to admit/transfer the patient for ongoing respiratory support and IV a ntibiotics. Case discussed with Dr. Soto at [facility]. Patient is not stable for transfer at this time, so we were authorized to admit the patient here. Authorization [id number]. Time of 1ST Reevaluation: 11:30 Reevaluation 1ST: Unchanged Patient Education/Counseling: Diagnosis, Treatment Family Education/Counseling: No Family Present Sepsis Sepsis Reasesment Focused Exam Sepsis focused exam: focus exam completed (1621. Heart rate 105, blood pressure stable, oxygen saturation 98% on 4 L nasal cannula.) Departure 1 Departure Time of Disposition: 14:00 Impression: Primary Impression: Acute on chronic respiratory failure Qualified Codes: J96.21 - Acute and chronic respiratory failure with hypoxia Additional Impressions: Pneumonia Qualified Codes: J18.9 - Pneumonia, unspecified organism Sepsis Qualified Codes: A41.9 - Sepsis, unspecified organism Elevated troponin Disposition: ADMITTED INPATIENT Admit to: Tele Condition: Guarded Critical Care Note Critical Care Time?: Yes (45 min-critical care time only) Critical care comment: Critical care time including multiple bedside re-evaluations, review of lab and imaging studies, and discussion of the case with the accepting provider. [place] is high risk for respiratory and/or hemodynamic decompensation. Stability Stability form required: No Heart Score Heart Score: Heart Score Response (Comments) Value History N/A 0 EKG N/A 0 Age N/A 0 Risk Factors N/A 0 Troponin N/A 0 Total 0 I personally scribed for FEI MUNOZ MD ([email or web address]) on 08/04/24 at 11:36. Electronically submitted by Elba Dsouza ([email or web address]). I personally scribed for FEI MUNOZ MD ([email or web address]) on 08/04/24 at 11:57. Electronically submitted by Elba Dsouza ([email or web address]). I personally scribed for FEI MUNOZ MD ([email or web address]) on 08/04/24 at 16:48. Electronically submitted by Elba Dsouza ([email or web address]). FEI MUNOZ MD Aug 04, 2024 11:36
[2024-08-04 11:38] VITALS: PULSE 129; RESP 33; O2SAT 99
--- NOTE | 2024-08-04 11:41 | DVH ---
CHEST RADIOGRAPH Indication: sob Technique: Single frontal view of the chest was obtained Comparison: XY CHEST PORTABLE on DOS: 04/28/24, XY CHEST PORTABLE on DOS: 06/03/23 FINDINGS: Lines and Tubes: None Lungs: Multifocal bilateral alveolar and interstitial opacities. Pleura: No effusion. No pneumothorax. Cardiomediastinal contours: Unremarkable Bones: No acute osseous abnormality. IMPRESSION: 1. Multifocal bilateral interstitial and alveolar opacities, slightly worsened compared to 04/28/2024 . HS:Y
[2024-08-04] MEDS: cefTRIAXone 1GM/50ML D5W 50 ML IV ONE (12:02)
[2024-08-04] MEDS: methylPREDNISolone SOD SUCC 125 MG/2 ML VL IV ONE (12:02)
[2024-08-04 12:06] LABS: Basophils # (auto) 0.1 10 ^3/uL (0-0.2); Basophils % (auto) 0.7 % (0.0-2.0); Eosinophils # (auto) 0.1 10 ^3/uL (0-0.8); Hematocrit 42.6 % (36.0-46.0)
[2024-08-04 12:08] LABS: Eosinophils % (auto) 0.7 % (0.0-7.0); Hemoglobin 13.6 g/dL (12.2-16.2); Lymphocytes # (auto) 0.9 10 ^3/uL (0.4-5.4); Lymphocytes % (auto) 5.9 % (10.0-50.0); Mean Corpuscular Hemoglobin 24.2 pg (28.0-32.0); Mean Corpuscular Hgb Conc. 31.9 g/dL (32.0-36.0); Mean Corpuscular Volume 75.7 fL (80.0-100.0); Monocytes # (auto) 0.8 10 ^3/uL (0-1.3); Monocytes % (auto) 4.9 % (0.0-12.0); Neutrophils % (auto) 87.8 % (37.0-80.0); Nucleated Red Blood Cells % 0.1 %; Platelet Count (auto) 346 10^3/uL (140-450); Red Blood Cells 5.63 10^6/uL (4.0-5.20); Red Cell Distribution Width 17.5 % (11.8-14.3)
[2024-08-04 12:20] LABS: Alanine Aminotransferase 25 U/L (7-40); Albumin 3.2 g/dL (3.2-4.8); Anion Gap 8 (5-15); BUN/Creatinine Ratio 13.1 (10.0-20.0); Carbon Dioxide 26 mmol/L (20-31); Chloride 100 mmol/L (98-107); Glucose 105 mg/dL (74-106); Potassium 4.3 mmol/L (3.5-5.1)
[2024-08-04 12:21] LABS: Bilirubin, Total 0.4 mg/dL (0.2-1.0); Total Protein 6.7 g/dL (5.7-8.2)
[2024-08-04 12:27] LABS: Lactic Acid w/Reflex 2.6 mmol/L (0.4-2.0)
[2024-08-04 12:32] LABS: Alkaline Phosphatase 308 U/L (46-116); Aspartate Aminotransferase 91 U/L (13-40); Blood Urea Nitrogen 8 mg/dL (9-23); Sodium 134 mmol/L (136-145)
[2024-08-04] MEDS: AZITHROMYCIN 500MG/ 250ML 250 ML IV ONE (12:41)
[2024-08-04 12:49] LABS: COVID19 ANTIGEN SOFIA FIA NEGATIVE (NEGATIVE); Rapid Influenza A Negative (Negative); Rapid Influenza B Negative (Negative)
[2024-08-04 13:19] LABS: Platelet Estimate Adequate
[2024-08-04 13:21] LABS: Hypochromia Slight
[2024-08-04] MEDS: SODIUM CHLORIDE 0.9% 1,000 ML IV ONE (14:00)
[2024-08-04] MEDS ORDERED: LIDOCAINE VISCOUS 2% 15ML UD ONE (15:16)
[2024-08-04] MEDS: LIDOCAINE VISCOUS 2% 15ML UD PO ONE (16:15)
[2024-08-04 17:51] LABS: Urine Bacteria FEW /hpf (None Seen); Urine Blood Negative /uL (Negative); Urine Clarity Clear (Clear); Urine Color Yellow (Yellow); Urine Mucus FEW (None Seen); Urine Protein, UAD TRACE (Negative); Urine Specific Gravity 1.021 (1.001-1.035); Urine Squamous Epithelial Cell FEW /hpf (<5); Urine Urobilinogen Normal (Negative); Urine WBC 39 /hpf (0 - 5); Urine pH 6.5 (5.0-9.0)
[2024-08-04 20:00] VITALS: PULSE 98; RESP 16; O2SAT 99
[2024-08-04 23:58] LABS: Basophils # (auto) 0 10 ^3/uL (0-0.2); Basophils % (auto) 0.1 % (0.0-2.0); Eosinophils # (auto) 0 10 ^3/uL (0-0.8); Lymphocytes # (auto) 0.8 10 ^3/uL (0.4-5.4); Monocytes # (auto) 0 10 ^3/uL (0-1.3); Monocytes % (auto) 0.9 % (0.0-12.0); Neutrophils # (auto) 4.3 10 ^3/uL (1.6-8.6)
[2024-08-05] VITALS (12 sets, daily range): BP systolic 96–127; BP diastolic 57–93; PULSE 83–101; RESP 16–24; TEMP 97.5–98; O2SAT 92–100
[2024-08-05] LABS: Eosinophils % (auto) 0.2 % (0.0-7.0); Hematocrit 34.8 % (36.0-46.0); Lymphocytes % (auto) 15.1 % (10.0-50.0); Mean Corpuscular Hemoglobin 23.9 pg (28.0-32.0); Mean Corpuscular Hgb Conc. 31.6 g/dL (32.0-36.0); Mean Corpuscular Volume 75.6 fL (80.0-100.0); Neutrophils % (auto) 83.7 % (37.0-80.0); Platelet Count (auto) 312 10^3/uL (140-450); Red Cell Distribution Width 17.4 % (11.8-14.3); White Blood Cell 5.2 10^3/uL (4.4-10.8)
[2024-08-05 00:07] LABS: Alanine Aminotransferase 19 U/L (7-40)
[2024-08-05 00:08] LABS: Albumin 2.5 g/dL (3.2-4.8); Alkaline Phosphatase 219 U/L (46-116); Anion Gap 6 (5-15); Aspartate Aminotransferase 55 U/L (13-40); BUN/Creatinine Ratio 22.2 (10.0-20.0); Bilirubin, Total 0.2 mg/dL (0.2-1.0); Blood Urea Nitrogen 10 mg/dL (9-23); Calcium 7.3 mg/dL (8.7-10.4); Carbon Dioxide 24 mmol/L (20-31); Chloride 107 mmol/L (98-107); Glucose 163 mg/dL (74-106); Potassium 3.8 mmol/L (3.5-5.1); Sodium 137 mmol/L (136-145); Total Protein 5.1 g/dL (5.7-8.2)
[2024-08-05] MEDS: PANTOPRAZOLE 40 MG/10 ML VIAL INJ IV ONE (00:30)
[2024-08-05] MEDS ORDERED: DEXTROSE (50%) 50ML SYRG IV PRN (00:30)
[2024-08-05] MEDS ORDERED: ONDANSETRON HCL 4 MG/2 ML VIAL IV PRN (00:30)
[2024-08-05 01:43] LABS: INR 1.19 (0.9-1.15); Partial Thromboplastin Time 29.8 SEC (24.5-34.5); Prothrombin Time 12.5 sec (9.3-11.8)
[2024-08-05 02:01] LABS: Erythrocyte Sedimentation Rate 18 mm/hr (0-20)
--- NOTE | 2024-08-05 02:40 | DVHHPRES ---
History of Present Illness Resident Creating Document: NAIDA PEREZCHINTANGISEL RESIDENT History of Present Illness This is a 74-year-old female with a past medical history as described below came to the ED with a chief complaint of worsening shortness of breath for the past 2 weeks. Patient reported that about 2 weeks ago she started to have flu-like symptoms with congestion, cough with expectoration which was yellowish to brownish in color associated with worsening shortness of breath. Patient at home is on 2 L oxygen per minute for interstitial lung disease but has been getting short of breath and also experienced chest pain which was aggravated with the coughing and was a pressure-like sensation across the chest. Patient reports that since yesterday she was coughing heavy with blood-tinged sputum. Patient also had difficulty eating because of the mouth pain, ulcerations in her mouth with a blood tinged palate and in her cheeks. Reports generalized weakne ss and that since the last few days she has not been able to walk Past medical history: interstitial lung disease, hypothyroidism, atrial fibrillation, heart failure with preserved ejection fraction, GERD Past surgical history: Hysterectomy Social history: According to the records patient was reported to be on hospice ( d/t interstitial lung disease) at home and denies smoking, alcohol, drug use Home medication: Levothyroxine 50 mcg, Yancy CT drank 150 mg b.i.d., mycophenolate mofetil 500 mg 2 tabs 2 times a day, omeprazole 40 mg 2 times dizzy, metformin 500 mg p.o. daily Review of Systems Review of Systems Patient was complaining of chest pain which she reports "it is my lungs" because she has difficulty breathing Has mouth pain with ulcers and blood-tinged sputum in the mouth Denies headache, nausea, vomiting, diarrhea Allergies: Coded Allergies: Mupirocin (Verified Allergy, Unknown, 08/06/23) Vancomycin (Verified Allergy, Unknown, 04/28/24) Medications Current Medications Medications Dose Ordered Sig/Isabel Route Start Time Stop Time Status Last Admin Dose Admin Nitroglycerin 0.4 mg Q5MINP PRN SL 08/04/24 23:15 Morphine Sulfate 2 mg Q30M PRN IV 08/04/24 23:15 Albuterol 2.5 mg Q6HR NEB 08/05/24 06:00 Ipratropium [place] 0.5 mg Q6HR NEB 08/05/24 06:00 Ceftriaxone Sodium 50 ml @ 100 mls/hr DAILY@09 IV 08/05/24 09:00 Azithromycin 250 ml @ 125 mls/hr DAILY IV 08/05/24 10:00 Diagnostic Test (Pha) 1 strip ACHS 08/05/24 07:00 Insulin Human Regular ACHS SC 08/05/24 07:00 Dextrose 50 ml UD PRN IV 08/05/24 00:30 Pantoprazole Sodium 40 mg DAILY IV 08/05/24 10:00 Dabigatran 150 mg BID PO 08/05/24 10:00 UNV Ondansetron HCl 4 mg Q6HPRN PRN IV 08/05/24 00:30 Levothyroxine Sodium 50 mcg QAM@0600 PO 08/05/24 06:00 Guaifenesin/ Codeine Phosphate 5 ml Q4HPRN PRN PO 08/05/24 00:30 Acetaminophen 650 mg Q6HP PRN PO 08/05/24 01:15 Al Hydrox/Mg Hydrox/Simethicone 5 ml Q6HPRN PRN MT 08/05/24 01:15 Acetaminophen/ Hydrocodone Bitart 1 tab Q6HPRN PRN PO 08/05/24 01:45 Exam Vital Signs Vital Signs Date Time Temp Pulse Resp B/P (MAP) Pulse Ox O2 Delivery O2 Flow Rate FiO2 08/05/24 01:19 97.9 101 18 96/57 98 4.0 36 97.9 08/04/24 20:00 Nasal Cannula* Exam Physical Examination Constitutional: Patient was alert and oriented to time, place and person and appears to be in mild respiratory distress Gen - no pallor, no icterus, no cyanosis, no clubbing, no LAD, no edema . Skin - Patients skin is warm and dry. HEENT - normocephalic, atraumatic, dry mucous membranes. Neck - full ROM, no LAD, no JVD Pulmonary - B/L equal air entry with basilar fine crackles, no wheezing cardiovascular - normal S1,S2 heard. no murmurs heard. peripheral pulses normal radial 2+, pedal 2+. GI - soft abdomen without tenderness to palpation . no hepatospleenomegaly. Bowel sounds normoactive Neurological - Bilateral upper extremity strength 4/5, bilateral lower extremity strength 3/5, no facial droop, normal speech, no tremor, no sensory deficiets. Labs/Xrays Labs Test 08/04/24 23:35 08/04/24 17:00 08/04/24 14:30 08/04/24 11:45 Range/Units White Blood Count 5.2 # 4.4-10.8 10^3/uL Red Blood Count 4.60 4.0-5.20 10^6/uL Hemoglobin 11.0 #L 12.2-16.2 g/dL Hematocrit 34.8 #L 36.0-46.0 % Mean Corpuscular Volume 75.6 L 80.0-100.0 fL Mean Corpuscular Hemoglobin 23.9 L 28.0-32.0 pg Mean Corpuscular Hemoglobin Concent 31.6 L 32.0-36.0 g/dL Red Cell Distribution Width 17.4 H 11.8-14.3 % Platelet Count 312 140-450 10^3/uL Mean Platelet Volume 8.2 6.9-10.8 fL Neutrophils (%) (Auto) 83.7 H 37.0-80.0 % Lymphocytes (%) (Auto) 15.1 10.0-50.0 % Monocytes (%) (Auto) 0.9 0.0-12.0 % Eosinophils (%) (Auto) 0.2 0.0-7.0 % Basophils (%) (Auto) 0.1 0.0-2.0 % Neutrophils # (Auto) 4.3 1.6-8.6 10 ^3/uL Lymphocytes # (Auto) 0.8 0.4-5.4 10 ^3/uL Monocytes # (Auto) 0 0-1.3 10 ^3/uL Eosinophils # (Auto) 0 0-0.8 10 ^3/uL Basophils # (Auto) 0 0-0.2 10 ^3/uL Nucleated Red Blood Cells 0.0 % Prothrombin Time 12.5 H 9.3-11.8 sec Prothrombin Time INR 1.19 H 0.9-1.15 Activated Partial Thromboplast Time 29.8 24.5-34.5 SEC Sodium Level 137 136-145 mmol/L Potassium Level 3.8 3.5-5.1 mmol/L Chloride Level 107 98-107 mmol/L Carbon Dioxide Level 24 20-31 mmol/L Anion Gap 6 5-15 Blood Urea Nitrogen 10 9-23 mg/dL Creatinine 0.45 L 0.550-1.02 mg/dL Glomerular Filtration Rate Calc 102 >90 mL/min BUN/Creatinine Ratio 22.2 H 10.0-20.0 Serum Glucose 163 H 74-106 mg/dL Lactic Acid Level 1.3 0.4-2.0 mmol/L Calcium Level 7.3 L 8.7-10.4 mg/dL Total Bilirubin 0.2 0.2-1.0 mg/dL Aspartate Amino Transferase (AST) 55 H 13-40 U/L Alanine Aminotransferase (ALT) 19 7-40 U/L Alkaline Phosphatase 219 H 46-116 U/L C-Reactive Protein High Sensitivity 4.39 H <1.0 mg/dL Total Protein 5.1 L 5.7-8.2 g/dL Albumin 2.5 L 3.2-4.8 g/dL Thyroid Stimulating Hormone (TSH) 0.79 0.55-4.78 uIU/mL Urine Color Yellow Yellow Urine Clarity Clear Clear Urine pH 6.5 5.0-9.0 Urine Specific [place] 1.021 1.001-1.035 Urine Protein Trace H Negative Urine Ketones Negative Negative Urine Blood Negative Negative /uL Urine Nitrite Negative Negative Urine Bilirubin Negative Negative Urine Urobilinogen Normal Negative mg/dL Urine Leukocyte Esterase 3+ Negative /uL Urine RBC 4 0 - 4 /hpf Urine WBC 39 0 - 5 /hpf Urine Squamous Epithelial Cells Few <5 /hpf Urine Bacteria Few H None Seen /hpf Urine Mucus Few None Seen Urine Glucose Normal Normal mg/dL Troponin I High Sensitivity 67 *H </=34 ng/L Influenza Type A Antigen Negative Negative Influenza Type B Antigen Negative Negative SARS-CoV-2 Antigen (Rapid) Negative NEGATIVE Test 08/04/24 11:42 Range/Units Platelet Estimate Adequate Clumped Platelets None Giant Platelets Hypochromasia (manual) Slight Microcytosis Slight B-Type Natriuretic Peptide 102.14 0-100 pg/mL Assessment/Plan Assessment/Plan # acute on chronic hypoxic respiratory failure likely due to pneumonia # Sepsis likely due to underlying pneumonia # community-acquired pneumonia likely due to Gram+/-versus atypical bacteria # chronic hypoxic respiratory failure likely due to interstitial lung disease - on 4 L oxygen via nasal cannula - COVID and influenza negative - elevated C-reactive protein - chest x-ray shows bilateral interstitial opacities, pneumonia could not be ruled out - sputum culture pending - 1 dose of methylprednisolone 125 mg IV given - 1 L NS bolus given - ceftriaxone 1 g and azithromycin 500 mg IV q.d. - albuterol 2.5 and ipratropium 0.5 q.6h medneb - Robitussin 5 mL p.r.n. for severe cough # atrial fibrillation with a paroxysms of RVR - continued on dabigatran 150 mg b.i.d. - rate control agents held currently due to underlying sepsis and soft blood pressures # NSTEMI likely type 2 - ECG showed no acute ST segment or T-wave changes - troponin levels trended 73-> 73-> 67-> 34 # oral pain ?Oral ulcers ?Glossitis - patient given lidocaine 10 mL viscous - aluminum hydroxide/magnesium hydroxide/simethicone mouthwash p.r.n. - [place] 5/325 p.r.n. - folic acid, vitamin B12, iron panel pending - ondansetron p.r.n. for nausea vomiting - Protonix 40 mg IV daily # UTI likely acute cystitis - UA shows 3+ LE, urine WBCs 39, few bacteria - urine culture pending - on ceftriaxone 1 g daily # hypothyroidism - started on low-dose of levothyroxine 25 mcg. # GERD - on Protonix 40 mg IV daily Goals of care discussed with the patient for over 25 minutes. Code status DNR Plan discussed with Dr. Conner Plan discussed with: Patient My Orders Orders - THOMAS PEREZ RESIDENT Procedure Category Date Status Time Admit ADMIT 08/04/24 Transmitted 23:04 Nitroglycerin PHA 08/04/24 In Process Sublingual (Ntrostat 23:15 Morphine Sulfate PHA 08/04/24 In Process Injection 23:15 Oxygen By Nasal RT 08/04/24 Transmitted Cannula 23:04 Stat Ekg For Chest MAGALIS 08/04/24 In Process Pain 23:04 Notify Of Changes MAGALIS 08/04/24 In Process From Base 23:04 Adobe Developer For MAGALIS 08/04/24 In Process 24 Hours 23:04 Emergency Dysrhythmia MAGALIS 08/04/24 In Process Protocol 23:04 Echo 2d Mode Cardiac US 08/04/24 Logged DOP 23:04 Albuterol Medneb PHA 08/05/24 In Process (Ventolin Medneb) 06:00 Ipratropium Medneb PHA 08/05/24 In Process (Atrovent Medneb) 06:00 Ceftriaxone 1gm/50ml PHA 08/05/24 In Process D5w (Rocephin) 09:00 Azithromycin 500mg/ PHA 08/05/24 In Process 250ml (Zithromax 50 10:00 Urine Bacterial MAX 08/05/24 In Process Culture 00:25 Respiratory Culture MAX 08/05/24 Logged W/ Gs 00:25 Full Liq Diet DIET 08/05/24 Transmitted Breakfast Glucose Blood PHA 08/05/24 In Process (Accu-Chek Comfort 07:00 Insulin R (Human) PHA 08/05/24 In Process (Insulin R) 07:00 Dextrose 50% Syringe PHA 08/05/24 In Process 00:30 Pantoprazole PHA 08/05/24 In Process (Protonix) 10:00 Dabigatran Capsule PHA 08/05/24 Pending (Pradaxa Capsule) 10:00 Ondansetron Hcl PHA 08/05/24 In Process (Zofran) 00:30 Levothyroxine Tablet PHA 08/05/24 In Process (Synthroid Tablet) 06:00 Guaifenesin-Codeine PHA 08/05/24 In Process Liquid (Robitussin/C 00:30 Erythrocyte LAB 08/05/24 In Process Sedimentation Rate 00:45 Acetaminophen Tablet PHA 08/05/24 In Process (Tylenol Tablet) 01:15 Magic Mouthwash PHA 08/05/24 In Process Suspension ([place] 01:15 Hydrocodone-Acet PHA 08/05/24 In Process 5/325mg Tab ([place] 01:45 Date of Service: Aug 04, 2024 Billing Provider: PRECIOUS CONNER MD Common Visit Codes: 90553-[id number] INP/OBS CARE (HIGH) Secondary Visit Codes: 94863-[id number] CARE PLAN 30 MINUTES THOMAS PEREZ RESIDENT Aug 05, 2024 02:40 PRECIOUS CONNER MD Aug 08, 2024 19:50
[2024-08-05 03:00] LABS: Basophils # (auto) 0 10 ^3/uL (0-0.2); Eosinophils # (auto) 0 10 ^3/uL (0-0.8); Lymphocytes # (auto) 0.9 10 ^3/uL (0.4-5.4); Monocytes # (auto) 0.1 10 ^3/uL (0-1.3)
[2024-08-05 03:02] LABS: Basophils % (auto) 0.2 % (0.0-2.0); Hematocrit 34.7 % (36.0-46.0); Lymphocytes % (auto) 19.1 % (10.0-50.0); Mean Corpuscular Hemoglobin 23.9 pg (28.0-32.0); Mean Corpuscular Hgb Conc. 31.6 g/dL (32.0-36.0); Mean Corpuscular Volume 75.6 fL (80.0-100.0); Monocytes % (auto) 1.4 % (0.0-12.0); Neutrophils # (auto) 3.6 10 ^3/uL (1.6-8.6); Neutrophils % (auto) 79.3 % (37.0-80.0); Nucleated Red Blood Cells % 0.1 %; Platelet Count (auto) 325 10^3/uL (140-450); Red Blood Cells 4.59 10^6/uL (4.0-5.20); Red Cell Distribution Width 17.8 % (11.8-14.3); White Blood Cell 4.6 10^3/uL (4.4-10.8)
[2024-08-05 03:12] LABS: % Iron Saturation 10.1 % (15-50)
[2024-08-05 03:13] LABS: Alanine Aminotransferase 22 U/L (7-40); Anion Gap 5 (5-15); BUN/Creatinine Ratio 25.5 (10.0-20.0); Blood Urea Nitrogen 13 mg/dL (9-23); Carbon Dioxide 27 mmol/L (20-31); Chloride 105 mmol/L (98-107); Potassium 4.3 mmol/L (3.5-5.1); Sodium 137 mmol/L (136-145)
[2024-08-05 03:14] LABS: Albumin 2.7 g/dL (3.2-4.8); Alkaline Phosphatase 243 U/L (46-116); Aspartate Aminotransferase 60 U/L (13-40); Bilirubin, Total 0.2 mg/dL (0.2-1.0); Calcium 8.1 mg/dL (8.7-10.4); Glucose 149 mg/dL (74-106); Total Protein 5.3 g/dL (5.7-8.2)
[2024-08-05 03:16] LABS: Ferritin 120.6 ng/mL (10-291); Folate (Folic Acid) 6.21 ng/mL (>5.38)
[2024-08-05] MEDS: ACETAMINOPHEN 325 MG TAB PO PRN (03:50)
[2024-08-05] MEDS ORDERED: LEVOTHYROXINE SODIUM 50 MCG TAB PO SCH (06:00)
[2024-08-05] MEDS: LEVOTHYROXINE SODIUM 50 MCG TAB PO SCH (06:21)
[2024-08-05] MEDS: HYDROcodone-ACET 5/325MG TAB PO PRN ×2 (06:22→11:46)
[2024-08-05] MEDS: ALBUTEROL SULF 2.5 MG/0.5ML(0.5%) NEB SOLN NEB SCH (06:42)
[2024-08-05] MEDS: IPRATROPIUM BROM 0.5 MG/2.5ML INH SOL NEB SCH (06:42)
[2024-08-05] MEDS: ACCU-CHEK COMFORT CURVE STRIP VI SCH (06:55)
[2024-08-05] MEDS: InsuLIN REG 1unit/0.01ml Soln (100units/ml) SC SCH (06:57)
[2024-08-05] MEDS: MAGIC MOUTHWASH 55 ML SUSP MT PRN (08:17)
[2024-08-05] MEDS: MORPHINE SULFATE INJ 2 MG/ml SYRG IV ONE (08:44)
[2024-08-05] MEDS: cefTRIAXone 1GM/50ML D5W 50 ML IV SCH (09:21)
[2024-08-05] MEDS: DABIGATRAN 75 MG CAP PO SCH (10:00)
[2024-08-05] MEDS ORDERED: AZITHROMYCIN 500MG/ 250ML 250 ML IV SCH (10:00)
[2024-08-05] MEDS: PANTOPRAZOLE 40 MG/10 ML VIAL INJ IV SCH (10:43)
[2024-08-05] MEDS ORDERED: VANCOMYCIN PER PHARMACY 0 MG IV SCH (11:30)
[2024-08-05] MEDS: diphenhdrAMINE HCL 50 MG/1 ML VL IV ONE (12:04)
[2024-08-05] MEDS: methylPREDNISolone SOD SUCC 40 MG/ML VL IV ONE (12:04)
[2024-08-05] MEDS: SODIUM CHLORIDE 0.9% 500 ML IV ONE (12:19)
--- NOTE | 2024-08-05 13:31 | ECG ---
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
[2024-08-05] MEDS: ZINC SULFATE 220mg CAP or TAB PO ONE (13:59)
[2024-08-05] MEDS: DOXYCYCLINE 100MG/250ML 250 ML IV SCH (14:00)
[2024-08-05] MEDS: guaiFENesin-CODEINE Liq 5 ML UD PO PRN (14:05)
[2024-08-05] MEDS: CEFEPIME 1GM/ 50ML 50 ML IV SCH (16:14)
--- NOTE | 2024-08-05 18:26 | DVHPNRES ---
Progress Note Date Seen: Aug 05, 2024 Resident Creating Document: MICHAEL LANZA ALYSSIA Has the PT tested + for MRSA If YES, has PT been informed?: No Medical Necessity Reason Pt with a Central, PICC or Fol: No Subjective Review of Systems This is a 74-year-old female with a past medical history as described below who came to the ED with a chief complaint of worsening shortness of breath for the past 2 weeks. The patient reported that about 2 weeks ago, she started experiencing flu-like symptoms with congestion and a cough producing yellowish to brownish expectoration, associated with worsening shortness of breath. At home, she uses 2 L of oxygen per minute for interstitial lung disease but has been feeling increasingly short of breath. She also experienced chest pain, which was aggravated by coughing and felt like a pressure across her chest. Since yesterday, she has been coughing heavily with blood-tinged sputum. The patient also had difficulty eating due to mouth pain, ulcerations in her mouth, and a blood-tinged palate and cheeks. She reports generalized weakness and has been unable to walk for the last few days. Past medical history: interstitial lung disease, hypothyroidism, atrial fibrillation, heart failure with preserved ejection fraction, GERD Past surgical history: Hysterectomy Social history: According to the records patient was reported to be on hospice ( d/t interstitial lung disease) at home and denies smoking, alcohol, drug use Home medication: Levothyroxine 50 mcg, Yancy COATES drank 150 mg b.i.d., mycophenolate mofetil 500 mg 2 tabs 2 times a day, omeprazole 40 mg 2 times dizzy, metformin 500 mg p.o. daily To the, patient seen and examined at the bedside. Patient is complaining of severe oral pain, and moderate shortness of breath. Patient reports: No new complaints, Feels better Objective vital signs Vital Sign Date Time Temp Pulse Resp B/P (MAP) Pulse Ox O2 Delivery O2 Flow Rate FiO2 08/05/24 16:00 98.6 72 18 137/57 (83) 97 98.6 08/05/24 13:04 Nasal Cannula 3.0 08/05/24 13:04 32 Total Intake and Output 08/04/24 08/04/24 08/05/24 15:00 23:00 07:00 Intake Total 50 ml Balance 50 ml medications Current Medications Medications Dose Ordered Sig/Isabel Route Start Time Stop Time Status Last Admin Dose Admin Nitroglycerin 0.4 mg Q5MINP PRN SL 08/04/24 23:15 Morphine Sulfate 2 mg Q30M PRN IV 08/04/24 23:15 Albuterol 2.5 mg Q6HR NEB 08/05/24 06:00 08/05/24 13:04 2.5 MG Ipratropium [place] 0.5 mg Q6HR NEB 08/05/24 06:00 08/05/24 13:04 0.5 MG Diagnostic Test (Pha) 1 strip ACHS 08/05/24 07:00 08/05/24 17:13 1 STRIP Insulin Human Regular ACHS SC 08/05/24 07:00 08/05/24 12:04 2 UNITS Dextrose 50 ml UD PRN IV 08/05/24 00:30 Pantoprazole Sodium 40 mg DAILY IV 08/05/24 10:00 08/05/24 10:43 40 MG Dabigatran 150 mg BID PO 08/05/24 10:00 Ondansetron HCl 4 mg Q6HPRN PRN IV 08/05/24 00:30 Guaifenesin/ Codeine Phosphate 5 ml Q4HPRN PRN PO 08/05/24 00:30 08/05/24 14:05 5 ML Acetaminophen 650 mg Q6HP PRN PO 08/05/24 01:15 08/05/24 10:44 650 MG Al Hydrox/Mg Hydrox/Simethicone 5 ml Q6HPRN PRN MT 08/05/24 01:15 08/05/24 15:26 5 ML Levothyroxine Sodium 25 mcg QAM@0600 PO 08/05/24 06:00 08/05/24 06:21 25 MCG Acetaminophen/ Hydrocodone Bitart 1 tab Q4HPRN PRN PO 08/05/24 11:00 08/05/24 16:14 1 TAB Zinc Sulfate 220 mg DAILY PO 08/06/24 10:00 08/09/24 11:55 Doxycycline Hyclate 250 ml @ 125 mls/hr Q12H IV 08/05/24 12:15 08/05/24 14:00 125 MLS/HR Cefepime HCl 50 ml @ 12.5 mls/hr Q8HR IV 08/05/24 14:00 08/05/24 16:55 12.5 MLS/HR Examination General Appearance: Alert, Oriented X3, Cooperative, in moderate respiratory distress HEENT: Diffuse oral redness Respiratory: Early diffuse crackles Cardiovascular: Regular rate, Normal S1, Normal S2, No murmurs, no chest wall tenderness Abdominal: Normal bowel sounds, Soft, No tenderness, No hepatospenomegaly, No masses Extremities: No clubbing, No cyanosis, No edema, Normal pulses, No tenderness/swelling Skin: No rashes, No breakdown, No significant lesion Neuro: Normal gait, Normal speech, Strength at 5/5 X4 ext, Normal tone, Sensation intact, Cranial nerves 3-12 NL, Reflexes 2+ Psych/Mental Status: Mental status NL, Mood NL laboratory and microbiology Laboratory Tests 08/05/24 02:35 Test 08/05/24 02:35 Range/Units Serum Glucose 149 H 74-106 mg/dL Microbiology Date/Time Source Procedure Growth Status 08/04/24 11:42 Blood Blood Culture - Preliminary NO GROWTH AFTER 24 HOURS OF INCUBATION. Resulted Labs and/or images reviewed: Labs reviewed by me, Image(s) reviewed by me Problem List/Assessment/Plan Problem List/Assessment/Plan Acute on chronic hypoxic respiratory failure likely due to pneumonia Sepsis, likely due to pneumonia/UTI Pneumonia, likely due to Gram-positive Gram-negative/viral Chronic hospital hypoxic respiratory failure, likely due to interstitial lung disease Interstitial lung disease, dependent on oxygen NSTEMI type 2, likely due to above Lactic acidosis CRP is raised at 4.9, lactic acid is raised at 2.6 Chest x-ray shows bilateral basal infiltration Influenza type A, B and COVID-19 are negative Check MRSA nares Empiric antibiotic including cefepime and doxycycline Nebulization with albuterol and ipratropium Guaifenesin-codeine liquid 5 mL p.o. q.4 hours p.r.n. Oxygen through nasal cannula IV normal saline History of atrial fibrillation Continue dabigatran 150 mg p.o. b.i.d. Hypothyroidism Continue levothyroxine 25 mEq daily Diabetes type 2 Insulin according to mild SS Moderate anemia, likely due to iron-deficiency Iron panel shows, iron-deficiency picture Mild hyponatremia, monitoring Vitamin-D deficiency, repleted Moderate protein malnutrition Albumin is decreased at 2.5 Malnutrition consultation the UTI , likely cystitis Urinalysis shows UTI picture IV antibiotic Urine culture Oral ulcer/Stomatitis, likely due to viral/vitamin deficiency Magic mouthwash 5 mL q.6 hours p.r.n. Tablet zinc 220 mg p.o. daily GERD Protonix DIET: Full liquid diet DVT PROPHYLAXIS: Patient is on dabigatran GI PROPHYLAXIS:: Protonix BOWEL REGIMEN: Colace p.r.n. CODE STATUS: code status were discussed for more than 27 minute, DNR DISPOSITION: Med surge Patient's status discussed with the patient. Because of severe sepsis, and worsening of respiratory status, currently the patient is not stable to be transferred to the [place]. Case discussed with Dr. Mata Plan discussed with: Patient, Other (RN) My Orders My Orders Orders - MICHAEL LANZA Procedure Category Date Status Time Hydrocodone-Acet PHA 08/05/24 In Process 5/325mg Tab ([place] 11:00 Zinc Sulfate PHA 08/06/24 In Process 10:00 Doxycycline PHA 08/05/24 In Process 100mg/250ml 12:15 Cefepime 1gm/ 50ml PHA 08/05/24 In Process (Maxipime 1gm/50ml) 14:00 Date of Service: Aug 05, 2024 Billing Provider: ROBERTO MIRANDA MD Common Visit Codes: [id number] INP/OBS CARE(HIGH) MICHAEL LANZA RESDIENT Aug 05, 2024 18:26 ROBERTO MIRANDA MD Aug 10, 2024 09:08
[2024-08-06] VITALS (16 sets, daily range): BP systolic 136–156; BP diastolic 65–87; PULSE 81–98; RESP 17–20; TEMP 97.2–99.1; O2SAT 95–100
[2024-08-06] MEDS: CEFEPIME 1GM/ 50ML 50 ML IV SCH (01:20)
[2024-08-06 06:23] LABS: Basophils # (auto) 0 10 ^3/uL (0-0.2); Basophils % (auto) 0.1 % (0.0-2.0); Eosinophils # (auto) 0 10 ^3/uL (0-0.8); Hematocrit 34.1 % (36.0-46.0); Mean Corpuscular Hgb Conc. 31.8 g/dL (32.0-36.0); Monocytes # (auto) 0.3 10 ^3/uL (0-1.3); Nucleated Red Blood Cells % 0.1 %
[2024-08-06 06:25] LABS: Hemoglobin 10.8 g/dL (12.2-16.2); Lymphocytes % (auto) 11.1 % (10.0-50.0); Mean Corpuscular Volume 75.4 fL (80.0-100.0); Monocytes % (auto) 3.5 % (0.0-12.0); Neutrophils % (auto) 85.3 % (37.0-80.0); Platelet Count (auto) 331 10^3/uL (140-450); Red Blood Cells 4.52 10^6/uL (4.0-5.20); Red Cell Distribution Width 17.7 % (11.8-14.3); White Blood Cell 9.4 10^3/uL (4.4-10.8)
[2024-08-06 06:37] LABS: Alanine Aminotransferase 23 U/L (7-40); Anion Gap 6 (5-15); BUN/Creatinine Ratio 25.4 (10.0-20.0); Blood Urea Nitrogen 15 mg/dL (9-23); Carbon Dioxide 26 mmol/L (20-31); Chloride 107 mmol/L (98-107); Potassium 4.2 mmol/L (3.5-5.1); Sodium 139 mmol/L (136-145)
[2024-08-06 06:38] LABS: Albumin 2.7 g/dL (3.2-4.8); Alkaline Phosphatase 228 U/L (46-116); Aspartate Aminotransferase 57 U/L (13-40); Bilirubin, Total 0.2 mg/dL (0.2-1.0); Calcium 8.6 mg/dL (8.7-10.4); Glucose 124 mg/dL (74-106); Total Protein 5.2 g/dL (5.7-8.2)
[2024-08-06] MEDS: MULTIPLE VITAMIN TAB PO SCH (09:46)
[2024-08-06] MEDS: ZINC SULFATE 220mg CAP or TAB PO SCH (09:46)
--- NOTE | 2024-08-06 10:44 | DVHPNRES ---
Progress Note Date Seen: Aug 06, 2024 Resident Creating Document: MICHAEL LANZA ALYSSIA Has the PT tested + for MRSA If YES, has PT been informed?: No Medical Necessity Reason Pt with a Central, PICC or Fol: No Subjective Review of Systems This is a 74-year-old female with a past medical history as described below who came to the ED with a chief complaint of worsening shortness of breath for the past 2 weeks. The patient reported that about 2 weeks ago, she started experiencing flu-like symptoms with congestion and a cough producing yellowish to brownish expectoration, associated with worsening shortness of breath. At home, she uses 2 L of oxygen per minute for interstitial lung disease but has been feeling increasingly short of breath. She also experienced chest pain, which was aggravated by coughing and felt like a pressure across her chest. Since yesterday, she has been coughing heavily with blood-tinged sputum. The patient also had difficulty eating due to mouth pain, ulcerations in her mouth, and a blood-tinged palate and cheeks. She reports generalized weakness and has been unable to walk for the last few days. Past medical history: interstitial lung disease, hypothyroidism, atrial fibrillation, heart failure with preserved ejection fraction, GERD Past surgical history: Hysterectomy Social history: According to the records patient was reported to be on hospice ( d/t interstitial lung disease) at home and denies smoking, alcohol, drug use Home medication: Levothyroxine 50 mcg, Yancy COATES drank 150 mg b.i.d., mycophenolate mofetil 500 mg 2 tabs 2 times a day, omeprazole 40 mg 2 times dizzy, metformin 500 mg p.o. daily To the, patient seen and examined at the bedside. Patient is still complaining of oral pain, and is in mild shortness of breath. Patient reports: No new complaints, Feels better Changes from previous H/P or p: Changes Objective vital signs Vital Sign Date Time Temp Pulse Resp B/P (MAP) Pulse Ox O2 Delivery O2 Flow Rate FiO2 08/06/24 09:00 98.2 94 19 138/65 (89) 99 98.2 08/06/24 07:43 Nasal Cannula* 2 28 Total Intake and Output 08/05/24 08/05/24 08/06/24 15:00 23:00 07:00 Intake Total 175 ml 357.5 ml 550 ml Output Total 300 ml Balance 175 ml 357.5 ml 250 ml medications Current Medications Medications Dose Ordered Sig/Isabel Route Start Time Stop Time Status Last Admin Dose Admin Nitroglycerin 0.4 mg Q5MINP PRN SL 08/04/24 23:15 Morphine Sulfate 2 mg Q30M PRN IV 08/04/24 23:15 Albuterol 2.5 mg Q6HR NEB 08/05/24 06:00 08/06/24 07:29 2.5 MG Ipratropium [place] 0.5 mg Q6HR NEB 08/05/24 06:00 08/06/24 07:28 0.5 MG Diagnostic Test (Pha) 1 strip ACHS 08/05/24 07:00 08/06/24 06:02 1 STRIP Insulin Human Regular ACHS SC 08/05/24 07:00 08/05/24 22:26 2 UNITS Dextrose 50 ml UD PRN IV 08/05/24 00:30 Pantoprazole Sodium 40 mg DAILY IV 08/05/24 10:00 08/06/24 09:46 40 MG Dabigatran 150 mg BID PO 08/05/24 10:00 08/05/24 21:43 150 MG Ondansetron HCl 4 mg Q6HPRN PRN IV 08/05/24 00:30 Guaifenesin/ Codeine Phosphate 5 ml Q4HPRN PRN PO 08/05/24 00:30 08/05/24 23:55 5 ML Acetaminophen 650 mg Q6HP PRN PO 08/05/24 01:15 08/05/24 10:44 650 MG Levothyroxine Sodium 25 mcg QAM@0600 PO 08/05/24 06:00 08/06/24 06:02 25 MCG Acetaminophen/ Hydrocodone Bitart 1 tab Q4HPRN PRN PO 08/05/24 11:00 08/05/24 21:49 1 TAB Zinc Sulfate 220 mg DAILY PO 08/06/24 10:00 08/09/24 11:55 08/06/24 09:46 220 MG Doxycycline Hyclate 250 ml @ 125 mls/hr Q12H IV 08/05/24 12:15 08/05/24 23:45 125 MLS/HR Cefepime HCl 50 ml @ 12.5 mls/hr Q8H IV 08/06/24 01:00 1/4/25 08:56 12.5 MLS/HR Multivitamins 1 tab DAILY PO 08/06/24 10:00 08/06/24 09:46 1 TAB Ergocalciferol 50,000 unit Q7D PO 08/06/24 09:00 Al Hydrox/Mg Hydrox/Simethicone 5 ml Q4HP PRN MT 08/06/24 10:15 Examination General Appearance: Alert, Oriented X3, Cooperative, in mild respiratory distress HEENT: Diffuse oral redness Respiratory: diffuse crackles Cardiovascular: Regular rate, Normal S1, Normal S2, No murmurs, no chest wall tenderness Abdominal: Normal bowel sounds, Soft, No tenderness, No hepatospenomegaly, No masses Extremities: No clubbing, No cyanosis, No edema, Normal pulses, No tenderness/swelling Skin: No rashes, No breakdown, No significant lesion Neuro: Normal gait, Normal speech, Strength at 5/5 X4 ext, Normal tone, Sensation intact, Cranial nerves 3-12 NL, Reflexes 2+ Psych/Mental Status: Mental status NL, Mood NL laboratory and microbiology Laboratory Tests 08/06/24 05:43 Test 08/06/24 05:43 Range/Units Serum Glucose 124 H 74-106 mg/dL Microbiology Date/Time Source Procedure Growth Status 08/04/24 17:00 Urine - [place] Urine Culture - Preliminary Resulted 08/04/24 11:42 Blood Blood Culture - Preliminary NO GROWTH AFTER 24 HOURS OF INCUBATION. Resulted Labs and/or images reviewed: Labs reviewed by me, Image(s) reviewed by me Problem List/Assessment/Plan Problem List/Assessment/Plan Acute on chronic hypoxic respiratory failure likely due to pneumonia Sepsis, likely due to pneumonia/UTI Pneumonia, likely due to Gram-positive Gram-negative/viral Chronic hospital hypoxic respiratory failure, likely due to interstitial lung disease Interstitial lung disease, dependent on oxygen NSTEMI type 2, likely due to above Lactic Acidosis CRP is raised at 4.9, lactic acid is raised at 2.6 Chest x-ray shows bilateral basal infiltration Influenza type A, B and COVID-19 are negative Check MRSA nares blood and urine prelimnary culture are negative Empiric antibiotic including cefepime and doxycycline Nebulization with albuterol and ipratropium Guaifenesin-codeine liquid 5 mL p.o. q.4 hours p.r.n. Oxygen through nasal cannula IV normal saline History of atrial fibrillation Continue dabigatran 150 mg p.o. b.i.d. Hypothyroidism Continue levothyroxine 25 mEq daily Diabetes type 2 Insulin according to mild SS Moderate anemia, likely due to iron-deficiency Iron panel shows, iron-deficiency picture Mild hyponatremia, monitoring Vitamin-D deficiency, repleted Moderate protein malnutrition Albumin is decreased at 2.5 Malnutrition consultation the UTI , likely cystitis Urinalysis shows UTI picture IV antibiotic Urine culture prelimnary result is negative Oral ulcer/Stomatitis, likely due to viral/vitamin deficiency Magic mouthwash 5 mL q.6 hours p.r.n. Tablet zinc 220 mg p.o. daily GERD Protonix DIET: Full liquid diet DVT PROPHYLAXIS: Patient is on dabigatran GI PROPHYLAXIS:: Protonix BOWEL REGIMEN: Colace p.r.n. CODE STATUS: Code status were discussed for more than 27 minute, DNR DISPOSITION: [facility] Patient's status discussed with the patient. Currently the patient is stable to be transferred to the [place]. Case discussed with Dr. Mata Plan discussed with: Patient, Other (RN) My Orders My Orders Orders - MICHAEL LANZA RESDIENT Procedure Category Date Status Time Hydrocodone-Acet PHA 08/05/24 In Process 5/325mg Tab ([place] 11:00 Zinc Sulfate PHA 08/06/24 In Process 10:00 Doxycycline PHA 08/05/24 In Process 100mg/250ml 12:15 Cefepime 1gm/ 50ml PHA 08/06/24 In Process (Maxipime 1gm/50ml) 01:00 Multiple Vitamin PHA 08/06/24 In Process Tablet (Mvi Tab) 10:00 Ergocalciferol PHA 08/06/24 In Process (Vitamin D 50,000 09:00 Magic Mouthwash PHA 08/06/24 In Process Suspension ([place] 10:15 * Social Media Strategist CONS 08/06/24 Verified Consult Date of Service: Aug 06, 2024 Billing Provider: ROBERTO MIRANDA MD Common Visit Codes: [id number] INP/OBS CARE(HIGH) MICHAEL LANZA RESDIENT Aug 06, 2024 10:44 ROBERTO MIRANDA MD Aug 10, 2024 09:10
[2024-08-06] MEDS: ERGOCALCIFEROL 50,000 UNIT(1.25MG) CAP PO SCH (11:08)
[2024-08-06] MEDS: MAGIC MOUTHWASH 55 ML SUSP MT PRN (11:53)
[2024-08-06] MEDS: methylPREDNISolone SOD SUCC 40 MG/ML VL IM ONE (13:57)
[2024-08-06 14:13] LABS: Erythrocyte Sedimentation Rate 10 mm/hr (0-20)
--- NOTE | 2024-08-06 21:12 | DVHSR ---
APPROVED REPORT EXAM: Two-dimensional and M-mode echocardiogram with Doppler and color Doppler. Blood Pressure: 136/72 mmHg INDICATION SOB H/O hfpef RISK FACTORS Height: 5'5", Weight: 121 DIMENSIONS LVDd3.7 (3.8-5.7cm)LA (2D)3.8 (1.9-4.0cm)Aortic Root3.5 (2.0-3.7cm) LVDs3.0 (2.5-4.0cm)LA (MM) (1.9-4.0cm)Aortic Cusp Exc1.8 (1.5-2.0cm) EF (%) 45.0 (55-70%)Rt. Atrium3.6 (1.9-4.0cm)Asc. Aorta cm IVSd0.9 (0.7-1.1cm)RV (D) (1.8-2.4cm) PWd0.9 (0.7-1.1cm) Mitral Valve MitralMitral Stenosis E wave1.16m/sMV Mean GR.mmHg E/A ratio0.02D MVAcm2 Aortic Valve Aortic ValveAortic Stenosis V10.95m/Charlette Mean GR.2mmHg V21.11m/Charlette Peak GR.5mmHg LVOT Diameter2.0 (1.8-2.4cm)Doppler AVA2.69cm2 Pulmonic Valve V20.91m/s Tricuspid Valve TR Velocity3.93m/s [id number] LEFT VENTRICLE The left ventricle is normal size. There is normal left ventricular wall thickness. Left ventricular systolic function is moderately reduced, LVEF is 35-40%. There is global hypokinesis of the left ventricle. RIGHT VENTRICLE The right ventricle is not well visualized. Systolic function is moderately reduced. ATRIA The left atrial size is normal. The right atrium size is normal. MITRAL VALVE The mitral valve is grossly normal. Mitral regurgitation is mild. PULMONIC VALVE The pulmonic valve is grossly normal in structure and function. There is trace pulmonic valvular regurgitation. TRICUSPID VALVE The tricuspid valve is grossly normal. There is moderate tricuspid regurgitation. AORTIC VALVE The aortic valve is trileaflet. No aortic regurgitation is present. GREAT VESSELS The aortic root is normal size. PERICARDIAL EFFUSION No evidence of pericardial effusion. Other Information Technically limited study due to body habitus, patient lying flat. Conclusion Compared to prior echocardiogram from 06/2023: LVEF has reduced from 55% to 35-40%. The left ventricle is normal size. There is normal left ventricular wall thickness. Left ventricular systolic function is moderately reduced, LVEF is 35-40%. There is global hypokinesis of the left vent ricle. Right ventricular systolic function is moderately reduced. The left and right atrial size is normal. There is moderate tricuspid regurgitation. No evidence of pericardial effusion.
[2024-08-07] VITALS (13 sets, daily range): BP systolic 130–154; BP diastolic 61–85; PULSE 64–109; RESP 16–24; TEMP 97.3–98.8; O2SAT 91–100
[2024-08-07 07:02] LABS: Basophils # (auto) 0 10 ^3/uL (0-0.2); Eosinophils # (auto) 0 10 ^3/uL (0-0.8); Hemoglobin 11.4 g/dL (12.2-16.2); Monocytes # (auto) 0.4 10 ^3/uL (0-1.3); Monocytes % (auto) 4.3 % (0.0-12.0); Neutrophils # (auto) 6.8 10 ^3/uL (1.6-8.6)
[2024-08-07 07:05] LABS: Hematocrit 36.2 % (36.0-46.0); Lymphocytes # (auto) 1.2 10 ^3/uL (0.4-5.4); Lymphocytes % (auto) 14.6 % (10.0-50.0); Mean Corpuscular Hemoglobin 23.8 pg (28.0-32.0); Mean Corpuscular Hgb Conc. 31.6 g/dL (32.0-36.0); Mean Corpuscular Volume 75.2 fL (80.0-100.0); Neutrophils % (auto) 81.1 % (37.0-80.0); Platelet Count (auto) 338 10^3/uL (140-450); Red Blood Cells 4.81 10^6/uL (4.0-5.20); Red Cell Distribution Width 17.7 % (11.8-14.3); White Blood Cell 8.4 10^3/uL (4.4-10.8)
[2024-08-07 07:36] LABS: Anion Gap 6 (5-15); Calcium 8.7 mg/dL (8.7-10.4); Carbon Dioxide 26 mmol/L (20-31); Sodium 140 mmol/L (136-145)
[2024-08-07 07:37] LABS: Alanine Aminotransferase 51 U/L (7-40); Alkaline Phosphatase 270 U/L (46-116); BUN/Creatinine Ratio 17.9 (10.0-20.0); Blood Urea Nitrogen 10 mg/dL (9-23); Chloride 108 mmol/L (98-107); Glucose 109 mg/dL (74-106)
[2024-08-07 07:39] LABS: Bilirubin, Total 0.3 mg/dL (0.2-1.0)
[2024-08-07 07:43] LABS: Albumin 2.8 g/dL (3.2-4.8); Aspartate Aminotransferase 155 U/L (13-40); Total Protein 5.7 g/dL (5.7-8.2)
--- NOTE | 2024-08-07 12:08 | DVHPNRES ---
Progress Note Date Seen: Aug 07, 2024 Resident Creating Document: SUKHI BEARD RESIDENT Has the PT tested + for MRSA If YES, has PT been informed?: No Medical Necessity Reason Pt with a Central, PICC or Fol: No Objective vital signs Vital Sign Date Time Temp Pulse Resp B/P (MAP) Pulse Ox O2 Delivery O2 Flow Rate FiO2 08/07/24 10:11 99 Nasal Cannula 2.0 08/07/24 10:11 28 08/07/24 09:00 97.6 71 18 149/78 (101) 97.6 Total Intake and Output 08/06/24 08/06/24 08/07/24 15:00 23:00 07:00 Intake Total 300 ml 225 ml 600 ml Output Total 800 ml 1300 ml Balance 300 ml -575 ml -700 ml medications Current Medications Medications Dose Ordered Sig/Isabel Route Start Time Stop Time Status Last Admin Dose Admin Nitroglycerin 0.4 mg Q5MINP PRN SL 08/04/24 23:15 Morphine Sulfate 2 mg Q30M PRN IV 08/04/24 23:15 Albuterol 2.5 mg Q6HR NEB 08/05/24 06:00 08/07/24 11:59 2.5 MG Ipratropium [place] 0.5 mg Q6HR NEB 08/05/24 06:00 08/07/24 11:58 0.5 MG Diagnostic Test (Pha) 1 strip ACHS 08/05/24 07:00 08/07/24 11:35 1 STRIP Insulin Human Regular ACHS SC 08/05/24 07:00 08/06/24 21:37 3 UNITS Dextrose 50 ml UD PRN IV 08/05/24 00:30 Pantoprazole Sodium 40 mg DAILY IV 08/05/24 10:00 08/07/24 09:33 40 MG Dabigatran 150 mg BID PO 08/05/24 10:00 08/07/24 09:34 150 MG Ondansetron HCl 4 mg Q6HPRN PRN IV 08/05/24 00:30 Guaifenesin/ Codeine Phosphate 5 ml Q4HPRN PRN PO 08/05/24 00:30 08/07/24 09:44 5 ML Acetaminophen 650 mg Q6HP PRN PO 08/05/24 01:15 08/06/24 23:39 650 MG Levothyroxine Sodium 25 mcg QAM@0600 PO 08/05/24 06:00 08/07/24 05:58 25 MCG Acetaminophen/ Hydrocodone Bitart 1 tab Q4HPRN PRN PO 08/05/24 11:00 08/05/24 21:49 1 TAB Zinc Sulfate 220 mg DAILY PO 08/06/24 10:00 08/09/24 11:55 08/07/24 09:33 220 MG Doxycycline Hyclate 250 ml @ 125 mls/hr Q12H IV 08/05/24 12:15 08/07/24 00:05 125 MLS/HR Cefepime HCl 50 ml @ 12.5 mls/hr Q8H IV 08/06/24 01:00 08/07/24 09:01 12.5 MLS/HR Multivitamins 1 tab DAILY PO 08/06/24 10:00 08/07/24 09:33 1 TAB Ergocalciferol 50,000 unit Q7D PO 08/06/24 09:00 08/06/24 11:08 50,000 UNIT Al Hydrox/Mg Hydrox/Simethicone 5 ml Q4HP PRN MT 08/06/24 10:15 08/07/24 00:17 5 ML Examination General Appearance: Alert, Oriented X3, Cooperative, in mild respiratory distress HEENT: Diffuse oral redness Respiratory: diffuse crackles Cardiovascular: Regular rate, Normal S1, Normal S2, No murmurs, no chest wall tenderness Abdominal: Normal bowel sounds, Soft, No tenderness, No hepatospenomegaly, No masses Extremities: No clubbing, No cyanosis, No edema, Normal pulses, No tenderness/swelling Skin: No rashes, No breakdown, No significant lesion Neuro: Normal gait, Normal speech, Strength at 5/5 X4 ext, Normal tone, Sensation intact, Cranial nerves 3-12 NL, Reflexes 2+ Psych/Mental Status: Mental status NL, Mood NL laboratory and microbiology Laboratory Tests 08/07/24 06:04 Test 08/07/24 06:04 Range/Units Serum Glucose 109 H 74-106 mg/dL Microbiology Date/Time Source Procedure Growth Status 08/05/24 23:45 Nose MRSA Screen - Final Complete 08/04/24 17:00 Urine - [place] Urine Culture - Preliminary Resulted 08/04/24 11:42 Blood Blood Culture - Preliminary NO GROWTH AFTER 72 HOURS OF INCUBATION. Resulted Labs and/or images reviewed: Labs reviewed by me, Image(s) reviewed by me Problem List/Assessment/Plan Problem List/Assessment/Plan Hospital course: 74-year-old female with interstitial lung disease, hypothyroidism, atrial fibrillation, heart failure with preserved ejection fraction, and GERD presented to the ED with worsening shortness of breath for two weeks. She reported flu-like symptoms, congestion, and a cough with yellowish to brownish sputum, along with chest pain aggravated by coughing. She uses 2 L of oxygen at home but has felt increasingly short of breath. Since yesterday, she has been coughing heavily with blood-tinged sputum and has mouth pain with ulcerations and a blood-tinged palate and cheeks. She also reports generalized weakness and has been unable to walk for the last few days. She is on hospice care at home and denies smoking, alcohol, or drug use. Her medications include levothyroxine, mycophenolate mofetil, omeprazole, and metformin. Patient is anxious but needs in hospital level of care. Also waiting for reply from [place] facility. Plan: Acute on chronic hypoxic respiratory failure likely due to pneumonia Sepsis, likely due to pneumonia/UTI Pneumonia, likely due to Gram-positive Gram-negative/viral Chronic hospital hypoxic respiratory failure, likely due to interstitial lung disease Interstitial lung disease, dependent on oxygen NSTEMI type 2, likely due to above Lactic Acidosis CRP is raised at 4.9, lactic acid is raised at 2.6 Chest x-ray shows bilateral basal infiltration Influenza type A, B and COVID-19 are negative Check MRSA nares blood and urine prelimnary culture are negative Empiric antibiotic including cefepime and doxycycline Nebulization with albuterol and ipratropium Guaifenesin-codeine liquid 5 mL p.o. q.4 hours p.r.n. Oxygen through nasal cannula IV normal saline History of atrial fibrillation Continue dabigatran 150 mg p.o. b.i.d. Hypothyroidism Continue levothyroxine 25 mEq daily Diabetes type 2 Insulin according to mild SS Moderate anemia, likely due to iron-deficiency Iron panel shows, iron-deficiency picture Mild hyponatremia, monitoring Vitamin-D deficiency, repleted Moderate protein malnutrition Albumin is decreased at 2.5 Malnutrition consultation the UTI , likely cystitis Urinalysis shows UTI picture IV antibiotic Urine culture prelimnary result is negative Oral ulcer/Stomatitis, likely due to viral/vitamin deficiency Magic mouthwash 5 mL q.6 hours p.r.n. Tablet zinc 220 mg p.o. daily GERD Protonix DIET: Full liquid diet DVT PROPHYLAXIS: Patient is on dabigatran GI PROPHYLAXIS:: Protonix BOWEL REGIMEN: Colace p.r.n. CODE STATUS: Code status were discussed for more than 27 minute, DNR DISPOSITION: Med surge Patient's status discussed with the patient. Currently the patient is stable to be transferred to the [place]. Case discussed with Dr. Mata Plan discussed with: Patient, Other Date of Service: Aug 07, 2024 Billing Provider: ROBERTO MIRANDA MD Common Visit Codes: [id number] INP/OBS CARE(HIGH) SUKHI BEARD RESIDENT Aug 07, 2024 12:08 ROBERTO MIRANDA MD Aug 10, 2024 09:23
[2024-08-07] MEDS: clonazePAM 0.5 MG TAB PO ONE (20:51)
[2024-08-08] VITALS (16 sets, daily range): BP systolic 114–134; BP diastolic 64–88; PULSE 84–129; RESP 16–24; TEMP 97.4–98.4; O2SAT 92–99
[2024-08-08 07:33] LABS: Anion Gap 7 (5-15); BUN/Creatinine Ratio 15.3 (10.0-20.0); Blood Urea Nitrogen 9 mg/dL (9-23); Calcium 8.9 mg/dL (8.7-10.4); Carbon Dioxide 27 mmol/L (20-31); Chloride 106 mmol/L (98-107); Glucose 94 mg/dL (74-106); Sodium 140 mmol/L (136-145)
[2024-08-08 07:34] LABS: Bilirubin, Total 0.4 mg/dL (0.2-1.0); Total Protein 6.3 g/dL (5.7-8.2)
[2024-08-08 07:37] LABS: Eosinophils # (auto) 0.2 10 ^3/uL (0-0.8); Mean Corpuscular Volume 75.4 fL (80.0-100.0); Nucleated Red Blood Cells % 0.2 %
[2024-08-08 07:39] LABS: Basophils # (auto) 0.1 10 ^3/uL (0-0.2); Basophils % (auto) 0.5 % (0.0-2.0); Hematocrit 40.6 % (36.0-46.0); Lymphocytes # (auto) 1.6 10 ^3/uL (0.4-5.4); Lymphocytes % (auto) 16.3 % (10.0-50.0); Mean Corpuscular Hemoglobin 24.1 pg (28.0-32.0); Monocytes # (auto) 0.5 10 ^3/uL (0-1.3); Neutrophils # (auto) 7.6 10 ^3/uL (1.6-8.6); Neutrophils % (auto) 76.2 % (37.0-80.0); Platelet Count (auto) 349 10^3/uL (140-450); Red Blood Cells 5.38 10^6/uL (4.0-5.20); Red Cell Distribution Width 17.9 % (11.8-14.3)
[2024-08-08 07:46] LABS: Alanine Aminotransferase 97 U/L (7-40); Albumin 3.2 g/dL (3.2-4.8); Alkaline Phosphatase 295 U/L (46-116); Aspartate Aminotransferase 203 U/L (13-40); Potassium 3.5 mmol/L (3.5-5.1)
[2024-08-08] MEDS: Juven Orange Powder PACKET 27.5gm PO SCH (09:47)
[2024-08-08] MEDS ORDERED: MORPHINE SULFATE INJ 2 MG/ml SYRG IV ONE (11:15)
[2024-08-08] MEDS: MORPHINE SULFATE INJ 2 MG/ml SYRG IV PRN (11:42)
[2024-08-08] MEDS: NITROGLYCERIN 0.4 MG SL TAB SL PRN (11:43)
[2024-08-08] MEDS: methylPREDNISolone SOD SUCC 40 MG/ML VL IV ONE (11:54)
--- NOTE | 2024-08-08 11:59 | DVH ---
Chest x-ray Technique: AP portable Comparison: 08/04/2024 CLINICAL INDICATION: Shortness of breath FINDINGS: Bilateral infiltrates. Heart size is enlarged in the aorta is tortuous. IMPRESSION: 1. Compared to previous exam minimal change in bilateral infiltrates or congestive changes
[2024-08-08] MEDS: KETOROLAC TROMETH 30 MG/ML 1ML VIAL IV ONE (12:10)
--- NOTE | 2024-08-08 14:13 | ECG ---
[facility], [place] Test Date: 2024-08-08 Test Time: 11:16:34 Pat Name: TATUM MORA Department: Room: 0231T Gender: F Supervisory Lifeguard: PANDA : 1950 Requested By: SAKSHI WARD Order Number: [id number] Reading MD: Kendall Barrientos Measurements Intervals [place] Rate: 121 P: 10 MS: 158 QRS: -51 QRSD: 82 T: 144 QT: 333 QTc: 473 Interpretive Statements Incomplete analysis due to missing data in precordial lead(s) Sinus tachycardia Consider right atrial enlargement LVH with secondary repolarization abnormality Probable inferior infarct, recent Anterior Q waves, possibly due to LVH Baseline wander in lead(s) V2 Missing lead(s): V3 Electronically Signed On 08-10-2024 12:21:18 PST by Kendall Barrientos Please click the below link to view image of tracing.
--- NOTE | 2024-08-08 19:12 | DVHPNRES ---
Progress Note Date Seen: Aug 08, 2024 Resident Creating Document: MICHAEL LANZA ALYSSIA Has the PT tested + for MRSA If YES, has PT been informed?: No Medical Necessity Reason Pt with a Central, PICC or Fol: No Subjective Review of Systems This is a 74-year-old female with a past medical history as described below who came to the ED with a chief complaint of worsening shortness of breath for the past 2 weeks. The patient reported that about 2 weeks ago, she started experiencing flu-like symptoms with congestion and a cough producing yellowish to brownish expectoration, associated with worsening shortness of breath. At home, she uses 2 L of oxygen per minute for interstitial lung disease but has been feeling increasingly short of breath. She also experienced chest pain, which was aggravated by coughing and felt like a pressure across her chest. Since yesterday, she has been coughing heavily with blood-tinged sputum. The patient also had difficulty eating due to mouth pain, ulcerations in her mouth, and a blood-tinged palate and cheeks. She reports generalized weakness and has been unable to walk for the last few days. Past medical history: interstitial lung disease, hypothyroidism, atrial fibrillation, heart failure with preserved ejection fraction, GERD Past surgical history: Hysterectomy Social history: According to the records patient was reported to be on hospice ( d/t interstitial lung disease) at home and denies smoking, alcohol, drug use Home medication: Levothyroxine 50 mcg, Yancy COATES drank 150 mg b.i.d., mycophenolate mofetil 500 mg 2 tabs 2 times a day, omeprazole 40 mg 2 times dizzy, metformin 500 mg p.o. daily To the, patient seen and examined at the bedside. Patient is still complaining of oral pain, and is in mild shortness of breath. Patient reports: No new complaints, Feels worse Objective vital signs Vital Sign Date Time Temp Pulse Resp B/P (MAP) Pulse Ox O2 Delivery O2 Flow Rate FiO2 08/08/24 18:57 100 18 98 08/08/24 18:47 Mask 6.0 08/08/24 18:47 50 08/08/24 16:38 97.6 120/80 (93) 97.6 Total Intake and Output 08/07/24 08/07/24 08/08/24 15:00 23:00 07:00 Intake Total 720 ml 400 ml Output Total 1550 ml 350 ml Balance -830 ml 50 ml medications Current Medications Medications Dose Ordered Sig/Isabel Route Start Time Stop Time Status Last Admin Dose Admin Nitroglycerin 0.4 mg Q5MINP PRN SL 08/04/24 23:15 08/08/24 11:43 0.4 MG Morphine Sulfate 2 mg Q30M PRN IV 08/04/24 23:15 08/08/24 11:42 2 MG Albuterol 2.5 mg Q6HR NEB 08/05/24 06:00 08/08/24 18:47 2.5 MG Ipratropium [place] 0.5 mg Q6HR NEB 08/05/24 06:00 08/08/24 18:47 0.5 MG Diagnostic Test (Pha) 1 strip ACHS 08/05/24 07:00 08/08/24 16:49 1 STRIP Insulin Human Regular ACHS SC 08/05/24 07:00 08/06/24 21:37 3 UNITS Dextrose 50 ml UD PRN IV 08/05/24 00:30 Pantoprazole Sodium 40 mg DAILY IV 08/05/24 10:00 08/08/24 09:41 40 MG Dabigatran 150 mg BID PO 08/05/24 10:00 08/08/24 09:41 150 MG Ondansetron HCl 4 mg Q6HPRN PRN IV 08/05/24 00:30 Guaifenesin/ Codeine Phosphate 5 ml Q4HPRN PRN PO 08/05/24 00:30 08/07/24 09:44 5 ML Acetaminophen 650 mg Q6HP PRN PO 08/05/24 01:15 08/06/24 23:39 650 MG Levothyroxine Sodium 25 mcg QAM@0600 PO 08/05/24 06:00 08/08/24 06:15 25 MCG Acetaminophen/ Hydrocodone Bitart 1 tab Q4HPRN PRN PO 08/05/24 11:00 08/05/24 21:49 1 TAB Zinc Sulfate 220 mg DAILY PO 08/06/24 10:00 08/09/24 11:55 08/08/24 09:41 220 MG Multivitamins 1 tab DAILY PO 08/06/24 10:00 08/08/24 09:41 1 TAB Ergocalciferol 50,000 unit Q7D PO 08/06/24 09:00 08/06/24 11:08 50,000 UNIT Al Hydrox/Mg Hydrox/Simethicone 5 ml Q4HP PRN MT 08/06/24 10:15 08/07/24 16:48 5 ML Enteral Nutritional Formula 27.5 gm BIDBM PO 08/08/24 10:00 08/08/24 09:47 27.5 GM Linezolid 300 ml @ 150 mls/hr Q12HR IV 08/08/24 22:00 Piperacillin Sod/ Tazobactam Sod 100 ml @ 25 mls/hr Q8HR IV 08/08/24 22:00 Doxycycline Hyclate 250 ml @ 125 mls/hr Q12H IV 08/09/24 00:00 Examination General Appearance: Alert, Oriented X3, Cooperative, in mild respiratory distress HEENT: Diffuse oral redness Respiratory: diffuse crackles Cardiovascular: Regular rate, Normal S1, Normal S2, No murmurs, no chest wall tenderness Abdominal: Normal bowel sounds, Soft, No tenderness, No hepatospenomegaly, No masses Extremities: No clubbing, No cyanosis, No edema, Normal pulses, No tenderness/swelling Skin: No rashes, No breakdown, No significant lesion Neuro: Normal gait, Normal speech, Strength at 5/5 X4 ext, Normal tone, Sensation intact, Cranial nerves 3-12 NL, Reflexes 2+ Psych/Mental Status: Mental status NL, Mood NL laboratory and microbiology Laboratory Tests 08/08/24 06:17 Test 08/08/24 06:17 Range/Units Serum Glucose 94 74-106 mg/dL Microbiology Date/Time Source Procedure Growth Status 08/05/24 23:45 Nose MRSA Screen - Final Complete 08/04/24 17:00 Urine - [place] Urine Culture - Final Enterococcus faecalis - VRE Complete 08/04/24 11:42 Blood Blood Culture - Preliminary NO GROWTH AFTER 72 HOURS OF INCUBATION. Resulted Labs and/or images reviewed: Labs reviewed by me, Image(s) reviewed by me Problem List/Assessment/Plan Problem List/Assessment/Plan Acute on chronic hypoxic respiratory failure likely due to pneumonia Sepsis, likely due to pneumonia/UTI Pneumonia, likely due to Gram-positive Gram-negative/viral Chronic hospital hypoxic respiratory failure, likely due to interstitial lung disease Interstitial lung disease, dependent on oxygen NSTEMI type 2, likely due to above Lactic Acidosis CRP is raised at 4.9, lactic acid is raised at 2.6 Chest x-ray shows bilateral basal infiltration Influenza type A, B and COVID-19 are negative Check MRSA nares blood and urine prelimnary culture are negative Empiric antibiotic including cefepime and doxycycline Nebulization with albuterol and ipratropium Guaifenesin-codeine liquid 5 mL p.o. q.4 hours p.r.n. Oxygen through nasal cannula IV normal saline History of atrial fibrillation Continue dabigatran 150 mg p.o. b.i.d. Hypothyroidism Continue levothyroxine 25 mEq daily Diabetes type 2 Insulin according to mild SS Moderate anemia, likely due to iron-deficiency Iron panel shows, iron-deficiency picture Transaminitis, likely hemodynamically mediated Mild hyponatremia, monitoring Vitamin-D deficiency, repleted Moderate protein malnutrition Albumin is decreased at 2.5 Malnutrition consultation the UTI , likely cystitis Urinalysis shows UTI picture IV antibiotic Urine culture prelimnary result is negative Oral ulcer/Stomatitis, likely due to viral/vitamin deficiency Magic mouthwash 5 mL q.6 hours p.r.n. Tablet zinc 220 mg p.o. daily GERD Protonix DIET: Full liquid diet DVT PROPHYLAXIS: Patient is on dabigatran GI PROPHYLAXIS:: Protonix BOWEL REGIMEN: Colace p.r.n. CODE STATUS: Code status were discussed for more than 27 minute, DNR DISPOSITION: [facility] Patient's status discussed with the patient. Today, patient condition worsened and complained of shortness of breaths and chest discomfort, and required more oxygen (at 8 liters/minute via facemask), repeated EKG and chest x-ray were normal, serial trop I was showing mild raised troponin I. Case discussed with Dr. Mata Plan discussed with: Patient, Other (RN) My Orders My Orders Orders - MICHAEL LANZA RESDIENT Procedure Category Date Status Time Chest Xray 1 View XY 08/08/24 Resulted 11:11 Code Status CODE 08/08/24 Transmitted 11:49 Communication Order ORDERS 08/08/24 Transmitted 11:50 * Associate Account Manager CONS 08/08/24 Transmitted Consult Piperacillin-Tazob PHA 08/08/24 In Process 3.375gm (Zosyn 3.375g 22:00 Doxycycline PHA 08/09/24 In Process 100mg/250ml 00:00 Dietary Evaluation Review Comments: 1.Continue current diet 2.Consider TENTERING MACHINE FEEDER for texture 3.Consider joseph BID (180kcal, 5g pro) for wound healing Expected Outcomes/Goals: 1. Pt will consume >75% of estimated needs within 3-5 days Date of Service: Aug 08, 2024 Billing Provider: ROBERTO MIRANDA MD Common Visit Codes: [id number] INP/OBS CARE(HIGH) MICHAEL LANZA RESDIENT Aug 08, 2024 19:12 ROBERTO MIRANDA MD Aug 10, 2024 09:30
[2024-08-08] MEDS: LINEZOLID 600MG/300ML 300 ML IV SCH (23:40)
[2024-08-09] VITALS (16 sets, daily range): BP systolic 115–138; BP diastolic 60–75; PULSE 69–100; RESP 18–20; TEMP 96.7–97.8; O2SAT 70–100
[2024-08-09] MEDS: PIPERACILLIN-TAZOB 3.375GM 100 ML IV SCH (01:24)
[2024-08-09] MEDS: MELATONIN 5 MG TAB PO ONE (01:35)
[2024-08-09] MEDS: DOXYCYCLINE 100MG/250ML 250 ML IV SCH (02:08)
[2024-08-09 07:27] LABS: Basophils # (auto) 0 10 ^3/uL (0-0.2); Basophils % (auto) 0.2 % (0.0-2.0); Eosinophils # (auto) 0 10 ^3/uL (0-0.8); Eosinophils % (auto) 0.6 % (0.0-7.0); Hematocrit 38.1 % (36.0-46.0); Lymphocytes # (auto) 1.3 10 ^3/uL (0.4-5.4); Lymphocytes % (auto) 16.1 % (10.0-50.0); Mean Corpuscular Hgb Conc. 31.6 g/dL (32.0-36.0); Monocytes # (auto) 0.4 10 ^3/uL (0-1.3); Monocytes % (auto) 4.6 % (0.0-12.0); Neutrophils # (auto) 6.5 10 ^3/uL (1.6-8.6); Neutrophils % (auto) 78.5 % (37.0-80.0); Nucleated Red Blood Cells % 0.6 %; Platelet Count (auto) 325 10^3/uL (140-450); Red Blood Cells 5.01 10^6/uL (4.0-5.20); Red Cell Distribution Width 18.1 % (11.8-14.3); White Blood Cell 8.2 10^3/uL (4.4-10.8)
[2024-08-09 07:29] LABS: Anion Gap 7 (5-15); BUN/Creatinine Ratio 19.1 (10.0-20.0); Blood Urea Nitrogen 13 mg/dL (9-23); Calcium 8.9 mg/dL (8.7-10.4); Carbon Dioxide 25 mmol/L (20-31); Chloride 105 mmol/L (98-107); Potassium 3.8 mmol/L (3.5-5.1); Sodium 137 mmol/L (136-145)
[2024-08-09 07:30] LABS: Bilirubin, Total 0.4 mg/dL (0.2-1.0); Total Protein 5.8 g/dL (5.7-8.2)
[2024-08-09 07:31] LABS: Alanine Aminotransferase 91 U/L (7-40); Alkaline Phosphatase 265 U/L (46-116); Aspartate Aminotransferase 118 U/L (13-40); Glucose 145 mg/dL (74-106)
[2024-08-09 09:06] LABS: Complement C3 74 mg/dL (82-167)
[2024-08-09] MEDS ORDERED: guaiFENesin-CODEINE Liq 5 ML UD PO PRN (15:00)
[2024-08-09] MEDS: methylPREDNISolone SOD SUCC 125 MG/2 ML VL IV ONE (17:23)
--- NOTE | 2024-08-09 18:30 | DVHPNRES ---
Progress Note Date Seen: Aug 09, 2024 Resident Creating Document: MICHAEL LANZA ALYSSIA Has the PT tested + for MRSA If YES, has PT been informed?: No Medical Necessity Reason Pt with a Central, PICC or Fol: No Subjective Review of Systems This is a 74-year-old female with a past medical history as described below who came to the ED with a chief complaint of worsening shortness of breath for the past 2 weeks. The patient reported that about 2 weeks ago, she started experiencing flu-like symptoms with congestion and a cough producing yellowish to brownish expectoration, associated with worsening shortness of breath. At home, she uses 2 L of oxygen per minute for interstitial lung disease but has been feeling increasingly short of breath. She also experienced chest pain, which was aggravated by coughing and felt like a pressure across her chest. Since yesterday, she has been coughing heavily with blood-tinged sputum. The patient also had difficulty eating due to mouth pain, ulcerations in her mouth, and a blood-tinged palate and cheeks. She reports generalized weakness and has been unable to walk for the last few days. Past medical history: interstitial lung disease, hypothyroidism, atrial fibrillation, heart failure with preserved ejection fraction, GERD Past surgical history: Hysterectomy Social history: According to the records patient was reported to be on hospice ( d/t interstitial lung disease) at home and denies smoking, alcohol, drug use Home medication: Levothyroxine 50 mcg, Yancy COATES drank 150 mg b.i.d., mycophenolate mofetil 500 mg 2 tabs 2 times a day, omeprazole 40 mg 2 times dizzy, metformin 500 mg p.o. daily To the, patient seen and examined at the bedside. Patient is still complaining of oral pain, and is in mild shortness of breath. Objective vital signs Vital Sign Date Time Temp Pulse Resp B/P (MAP) Pulse Ox O2 Delivery O2 Flow Rate FiO2 08/09/24 16:30 97.2 82 19 137/62 (87) 97 97.2 08/09/24 11:36 Venturi Mask 6 24 24 Total Intake and Output 08/08/24 08/08/24 08/09/24 15:00 23:00 07:00 Intake Total 234 ml 1184.0 ml 1025 ml Output Total 700 ml 400 ml Balance 234 ml 484.0 ml 625 ml medications Current Medications Medications Dose Ordered Sig/Isabel Route Start Time Stop Time Status Last Admin Dose Admin Nitroglycerin 0.4 mg Q5MINP PRN SL 08/04/24 23:15 08/08/24 11:43 0.4 MG Morphine Sulfate 2 mg Q30M PRN IV 08/04/24 23:15 08/08/24 11:42 2 MG Albuterol 2.5 mg Q6HR NEB 08/05/24 06:00 08/09/24 11:32 2.5 MG Ipratropium [place] 0.5 mg Q6HR NEB 08/05/24 06:00 08/09/24 11:32 0.5 MG Diagnostic Test (Pha) 1 strip ACHS 08/05/24 07:00 08/09/24 17:26 1 STRIP Insulin Human Regular ACHS SC 08/05/24 07:00 08/06/24 21:37 3 UNITS Dextrose 50 ml UD PRN IV 08/05/24 00:30 Pantoprazole Sodium 40 mg DAILY IV 08/05/24 10:00 08/09/24 09:56 40 MG Dabigatran 150 mg BID PO 08/05/24 10:00 08/09/24 11:58 150 MG Ondansetron HCl 4 mg Q6HPRN PRN IV 08/05/24 00:30 Acetaminophen 650 mg Q6HP PRN PO 08/05/24 01:15 08/09/24 03:30 650 MG Levothyroxine Sodium 25 mcg QAM@0600 PO 08/05/24 06:00 08/09/24 06:33 25 MCG Acetaminophen/ Hydrocodone Bitart 1 tab Q4HPRN PRN PO 08/05/24 11:00 08/05/24 21:49 1 TAB Multivitamins 1 tab DAILY PO 08/06/24 10:00 08/09/24 09:58 1 TAB Ergocalciferol 50,000 unit Q7D PO 08/06/24 09:00 08/06/24 11:08 50,000 UNIT Al Hydrox/Mg Hydrox/Simethicone 5 ml Q4HP PRN MT 08/06/24 10:15 08/09/24 11:57 5 ML Enteral Nutritional Formula 27.5 gm BIDBM PO 08/08/24 10:00 08/09/24 13:53 27.5 GM Linezolid 300 ml @ 150 mls/hr Q12HR IV 08/08/24 22:00 08/09/24 09:58 150 MLS/HR Piperacillin Sod/ Tazobactam Sod 100 ml @ 25 mls/hr Q8HR IV 08/08/24 22:00 08/09/24 13:43 25 MLS/HR Doxycycline Hyclate 250 ml @ 125 mls/hr Q12H IV 08/09/24 00:00 08/09/24 13:44 125 MLS/HR Methylprednisolone Sodium Succinate 40 mg BID IV 08/09/24 22:00 Mycophenolate Mofetil 1,000 mg BID PO 08/09/24 22:00 Future Hold Patient Own Medication 2 mg BID PO 08/09/24 22:00 Future Hold Patient Own Medication 500 mg BID PO 08/09/24 22:00 Guaifenesin/ Codeine Phosphate 5 ml Q6HP PRN PO 08/09/24 15:00 Examination General Appearance: Alert, Oriented X3, Cooperative, in mild respiratory distress HEENT: Diffuse oral redness Respiratory: diffuse crackles Cardiovascular: Regular rate, Normal S1, Normal S2, No murmurs, no chest wall tenderness Abdominal: Normal bowel sounds, Soft, No tenderness, No hepatospenomegaly, No masses Extremities: No clubbing, No cyanosis, No edema, Normal pulses, No tenderness/swelling Skin: No rashes, No breakdown, No significant lesion Neuro: Normal gait, Normal speech, Strength at 5/5 X4 ext, Normal tone, Sensation intact, Cranial nerves 3-12 NL, Reflexes 2+ Psych/Mental Status: Mental status NL, Mood NL laboratory and microbiology Laboratory Tests 08/09/24 05:18 Test 08/09/24 05:18 Range/Units Serum Glucose 145 H 74-106 mg/dL Microbiology Date/Time Source Procedure Growth Status 08/05/24 23:45 Nose MRSA Screen - Final Complete 08/04/24 17:00 Urine - [place] Urine Culture - Final Enterococcus faecalis - VRE Complete 08/04/24 11:42 Blood Blood Culture - Final NO GROWTH AFTER 5 DAYS OF INCUBATION. Complete Labs and/or images reviewed: Labs reviewed by me, Image(s) reviewed by me Problem List/Assessment/Plan Problem List/Assessment/Plan Acute on chronic hypoxic respiratory failure likely due to pneumonia Sepsis, likely due to pneumonia/UTI Pneumonia, likely due to Gram-positive Gram-negative/viral Chronic hospital hypoxic respiratory failure, likely due to interstitial lung disease Interstitial lung disease, dependent on oxygen NSTEMI type 2, likely due to above Lactic Acidosis CRP is raised at 4.9, lactic acid is raised at 2.6 Chest x-ray shows bilateral basal infiltration Influenza type A, B and COVID-19 are negative Check MRSA nares blood and urine prelimnary culture are negative Empiric antibiotic including cefepime and doxycycline Nebulization with albuterol and ipratropium Guaifenesin-codeine liquid 5 mL p.o. q.4 hours p.r.n. Oxygen through nasal cannula IV normal saline History of atrial fibrillation Continue dabigatran 150 mg p.o. b.i.d. Hypothyroidism Continue levothyroxine 25 mEq daily Diabetes type 2 Insulin according to mild SS Moderate anemia, likely due to iron-deficiency Iron panel shows, iron-deficiency picture Transaminitis, likely hemodynamically mediated Mild hyponatremia, monitoring Vitamin-D deficiency, repleted Moderate protein malnutrition Albumin is decreased at 2.5 Malnutrition consultation the UTI , likely cystitis Urinalysis shows UTI picture IV antibiotic Urine culture prelimnary result is negative Oral ulcer/Stomatitis, likely due to viral/vitamin deficiency Magic mouthwash 5 mL q.6 hours p.r.n. Tablet zinc 220 mg p.o. daily GERD Protonix DIET: Full liquid diet DVT PROPHYLAXIS: Patient is on dabigatran GI PROPHYLAXIS:: Protonix BOWEL REGIMEN: Colace p.r.n. CODE STATUS: Code status were discussed for more than 27 minute, DNR DISPOSITION: [facility] [place] Patient's status discussed with the patient. Today, patient condition is better, stable to be transferred to the [facility]. Case discussed with Dr. Mata Plan discussed with: Patient, Daughter, Other (RN) My Orders My Orders Orders - MICHAEL LANZA RESDIENT Procedure Category Date Status Time * Auditing Control Clerk CONS 08/09/24 Transmitted Consult Methylprednisolone PHA 08/09/24 In Process Sod Succ (Solu Medrol 22:00 Insert Midline ORDERS 08/09/24 Transmitted 16:55 Mechanical Soft Diet DIET 08/09/24 Transmitted Dinner Imaging Transfer ORDERS 08/09/24 Transmitted Request 17:41 Dietary Evaluation Review Comments: 1.Continue current diet 2.Consider PRODUCT DEVELOPMENT SPECIALIST for texture 3.Consider joseph BID (180kcal, 5g pro) for wound healing Expected Outcomes/Goals: 1. Pt will consume >75% of estimated needs within 3-5 days Date of Service: Aug 09, 2024 Billing Provider: ROBERTO MIRANDA MD Common Visit Codes: [id number] INP/OBS CARE(HIGH) MICHAEL LANZA RESDIENT Aug 09, 2024 18:30 ROBERTO MIRANDA MD Aug 10, 2024 09:34
[2024-08-09] MEDS ORDERED: TACROLIMUS 2 MG PO SCH (22:00)
[2024-08-09] MEDS ORDERED: methylPREDNISolone SOD SUCC 40 MG/ML VL IV SCH (22:00)
[2024-08-09] MEDS ORDERED: MYCOPHENOLATE 500 MG TAB PO SCH (22:00)
--- NOTE | 2024-08-10 19:08 | DVHDSRES ---
Discharge Summary Date of Admission Resident Creating Document: MICHAEL LANZA RESDIENT Aug 04, 2024 at 23:04 Date of Discharge: Aug 09, 2024 Admitting Diagnosis Acute hypoxic respiratory failure, chest pain Labs/Diagnostic Data: Laboratory Results Test 08/09/24 17:02 08/09/24 05:18 08/08/24 17:41 08/07/24 06:04 POC Glucose 125 mg/dl (70-106) White Blood Count 8.2 10^3/uL (4.4-10.8) Red Blood Count 5.01 10^6/uL (4.0-5.20) Hemoglobin 12.0 g/dL (12.2-16.2) Hematocrit 38.1 % (36.0-46.0) Mean Corpuscular Volume 76.0 fL (80.0-100.0) Mean Corpuscular Hemoglobin 24.0 pg (28.0-32.0) Mean Corpuscular Hemoglobin Concent 31.6 g/dL (32.0-36.0) Red Cell Distribution Width 18.1 % (11.8-14.3) Platelet Count 325 10^3/uL (140-450) Mean Platelet Volume 8.6 fL (6.9-10.8) Neutrophils (%) (Auto) 78.5 % (37.0-80.0) Lymphocytes (%) (Auto) 16.1 % (10.0-50.0) Monocytes (%) (Auto) 4.6 % (0.0-12.0) Eosinophils (%) (Auto) 0.6 % (0.0-7.0) Basophils (%) (Auto) 0.2 % (0.0-2.0) Neutrophils # (Auto) 6.5 10 ^3/uL (1.6-8.6) Lymphocytes # (Auto) 1.3 10 ^3/uL (0.4-5.4) Monocytes # (Auto) 0.4 10 ^3/uL (0-1.3) Eosinophils # (Auto) 0 10 ^3/uL (0-0.8) Basophils # (Auto) 0 10 ^3/uL (0-0.2) Nucleated Red Blood Cells 0.6 % Sodium Level 137 mmol/L (136-145) Potassium Level 3.8 mmol/L (3.5-5.1) Chloride Level 105 mmol/L (98-107) Carbon Dioxide Level 25 mmol/L (20-31) Anion Gap 7 (5-15) Blood Urea Nitrogen 13 mg/dL (9-23) Creatinine 0.68 mg/dL (0.550-1.02) Glomerular Filtration Rate Calc 92 mL/min (>90) BUN/Creatinine Ratio 19.1 (10.0-20.0) Serum Glucose 145 mg/dL (74-106) Calcium Level 8.9 mg/dL (8.7-10.4) Total Bilirubin 0.4 mg/dL (0.2-1.0) Aspartate Amino Transferase (AST) 118 U/L (13-40) Alanine Aminotransferase (ALT) 91 U/L (7-40) Alkaline Phosphatase 265 U/L (46-116) Total Protein 5.8 g/dL (5.7-8.2) Albumin 3.0 g/dL (3.2-4.8) Troponin I High Sensitivity 47 ng/L (</=34) Complement C3 74 mg/dL (82-167) Complement C4 18 mg/dL (12-38) Test 08/06/24 05:43 08/05/24 02:35 08/04/24 23:35 08/04/24 17:00 Erythrocyte Sedimentation Rate 10 mm/hr (0-20) Reticulocyte Count (auto) 1.10 % (0.5-1.5) Iron Level 16 ug/dL (50-170) Total Iron Binding Capacity 159 ug/dL (250-425) Percent Iron Saturation 10.1 % (15-50) Ferritin 120.6 ng/mL (10-291) Vitamin B12 Level 1723 pg/mL (211-911) Vitamin D 25-Hydroxy 24.2 ng/mL (30.0-100) Folic Acid 6.21 ng/mL (>5.38) Prothrombin Time 12.5 sec (9.3-11.8) Prothrombin Time INR 1.19 (0.9-1.15) Activated Partial Thromboplast Time 29.8 SEC (24.5-34.5) Lactic Acid Level 1.3 mmol/L (0.4-2.0) C-Reactive Protein High Sensitivity 4.39 mg/dL (<1.0) Thyroid Stimulating Hormone (TSH) 0.79 uIU/mL (0.55-4.78) Urine Color Yellow (Yellow) Urine Clarity Clear (Clear) Urine pH 6.5 (5.0-9.0) Urine Specific [place] 1.021 (1.001-1.035) Urine Protein Trace (Negative) Urine Ketones Negative (Negative) Urine Blood Negative /uL (Negative) Urine Nitrite Negative (Negative) Urine Bilirubin Negative (Negative) Urine Urobilinogen Normal mg/dL (Negative) Urine Leukocyte Esterase 3+ /uL (Negative) Urine RBC 4 /hpf (0 - 4) Urine WBC 39 /hpf (0 - 5) Urine Squamous Epithelial Cells Few /hpf (<5) Urine Bacteria Few /hpf (None Seen) Urine Mucus Few (None Seen) Urine Glucose Normal mg/dL (Normal) Test 08/04/24 11:45 08/04/24 11:42 Influenza Type A Antigen Negative (Negative) Influenza Type B Antigen Negative (Negative) SARS-CoV-2 Antigen (Rapid) Negative (NEGATIVE) Platelet Estimate Adequate Clumped Platelets None Giant Platelets Hypochromasia (manual) Slight Microcytosis Slight B-Type Natriuretic Peptide 102.14 pg/mL (0-100) Other Laboratory Tests 08/09/24 05:18 Brief Hx & Hospital Course: This is a 74-year-old female with a history of interstitial lung disease, hypothyroidism, atrial fibrillation, heart failure with preserved ejection fraction, and GERD, who came to the ED with worsening shortness of breath for the past two weeks. She reported experiencing flu-like symptoms with congestion and a cough producing yellowish to brownish expectoration, associated with worsening shortness of breath. At home, she uses 2 L of oxygen per minute for interstitial lung disease but has been feeling increasingly short of breath. She also experienced chest pain, aggravated by coughing and felt like a pressure across her chest. Since yesterday, she has been coughing heavily with blood- tinged sputum and has had difficulty eating due to mouth pain, ulcerations in her mouth, and a blood-tinged palate and cheeks. She reports generalized weakness and has been unable to walk for the last few days. Her past surgical history includes a hysterectomy, and according to records, she is on hospice care at home due to interstitial lung disease and denies smoking, alcohol, or drug use. Her home medications include levothyroxine, Yancy CT, mycophenolate mofetil, omeprazole, and metformin. Hospital course: Chest x-ray showed bilateral basilar infiltration, the patient was put on acute on chronic hypoxic respiratory failure likely due to pneumonia/interstitial lung disease. The patient was given empiric antibiotic of cefepime and doxycycline, nebulized with albuterol and ipratropium, injection methylprednisolone, IV normal saline and oxygen was trivial given through nasal cannula. Home medication for the atrial fibrillation, hypothyroidism including dabigatran and levothyroxine was continued during hospitalization course. Urinalysis showed UTI picture which was treated with the IV antibiotics. Vitamin-D deficiency and protein malnutrition was repleted during hospital course. Oral answer/stomatitis which was leading to the oral pain was treated with magic mouth wash. On 08/10, the patient was feeling better since admission. The patient was able to maintain oxygen on 2 L of oxygen(patient normally uses 2 L of oxygen at home), oral pain had subsided, transfer plan discussed with the patient and the patient was transferred to the [facility]. Discharge plan: Per transfer paper Operations or Procedures [place] [id number] Ph: [phone] DIAGNOSTIC IMAGING Diagnostic Imaging Report : [id number] Signed PATIENT: TATUM MORA ACCT: [id number] UNIT: [id number] : 1950 LOC: TELE-E-ADS ROOM / B[place]: [id number] [id number] AGE / SEX: 74 / F ADM STATUS: ADM IN SERVICE 1111 ORDERING PHYSICIAN: MICHAEL LANZA RESDIHENRIQUE PROCEDURE(s): CXR1 - CHEST XRAY 1 VIEW REASON: chset pain ORDER NUMBER(s): [id number], ACCESSION NUMBER(s): [id number] Chest x-ray Technique: AP portable Comparison: 08/04/2024 CLINICAL INDICATION: Shortness of breath FINDINGS: Bilateral infiltrates. Heart size is enlarged in the aorta is tortuous. IMPRESSION: 1. Compared to previous exam minimal change in bilateral infiltrates or congestive changes ATED BY: NIKOLAS RAMÍREZ MD DICTATED DATE/TIME: 08/08/24 1156 SIGNED BY: NIKOLAS RAMÍREZ MD SIGNED DATE/TIME: 08/08/24 1156 CC: Condition at Discharge: Fair Final Diagnosis/Problems List Acute on chronic hypoxic respiratory failure likely due to pneumonia Sepsis, likely due to pneumonia/UTI Chest pain, likely due to acute pneumonitis Pneumonia, likely due to Gram-positive Gram-negative/viral Chronic hospital hypoxic respiratory failure, likely due to interstitial lung disease Interstitial lung disease, dependent on oxygen NSTEMI type 2, likely due to above Lactic Acidosis History of atrial fibrillation Hypothyroidism Diabetes type 2 Moderate anemia, likely due to iron-deficiency Transaminitis, likely hemodynamically mediated Mild hyponatremia, monitoring Vitamin-D deficiency, repleted Moderate protein malnutrition UTI , likely cystitis Oral ulcer/Stomatitis/glossitis, likely due to viral/vitamin deficiency Discharge Disposition: Acute Care Facility Discharge Instruct/Medications Diet: Cardiac 2g Na,low cholest Activity: No Restrictions, As Tolerated Follow Up/Referral: Follow up with the PCP within 1 week of the discharge. follow up with the pulmonology on outpatient basis. Medications: Per transfer paper Discharge Statement: "Patient was advised to return to the ER or call 911 if any headaches, dizziness, shortness of breath, chest pain, abdominal pain, bleeding, fevers, or worsening of medical condition. Patient was counseled about treatment plan, medications, possible side effects, patientverbalized understanding. All questions were answered to the best of my ability. This discharge took greater then 30 minutes in planning, reviewing documentation, counseling the patient, and discussing with other team members." ASSESSMENT ASSESSMENT Assessment Acute on chronic hypoxic respiratory failure likely due to pneumonia Chronic hypoxic respiratory failure likely due to interstitial lung disease [facility] Aug 10, 2024 19:08
== END 2024-08-09 22:10 | disposition short-term general hospital (02) | DRG 871 ==
LOC: EDBD 10:37 → ER 10:37 → TELE 23:04 → TELE-E-ADS 08-05 18:58 → TELE-EAST 08-08 19:57
PROVIDERS: ADMIT Student in an Organized Health Care Education/Training Program; ATTEND Student in an Organized Health Care Education/Training Program
DX: A41.50 Gram-negative sepsis, unspecified (principal); I21.A1 Myocardial infarction type 2; J15.69 Pneumonia due to other Gram-negative bacteria; J96.21 Acute and chronic respiratory failure with hypoxia; J15.9 Unspecified bacterial pneumonia; J12.9 Viral pneumonia, unspecified; N30.00 Acute cystitis without hematuria; E87.20 Acidosis, unspecified; I50.30 Unspecified diastolic (congestive) heart failure; E44.0 Moderate protein-calorie malnutrition; E87.1 Hypo-osmolality and hyponatremia; J84.9 Interstitial pulmonary disease, unspecified; Z20.822 Contact with and (suspected) exposure to COVID-19; I48.0 Paroxysmal atrial fibrillation; K14.0 Glossitis; K21.9 Gastro-esophageal reflux disease without esophagitis; E03.9 Hypothyroidism, unspecified; E55.9 Vitamin D deficiency, unspecified; D50.9 Iron deficiency anemia, unspecified; K12.1 Other forms of stomatitis; E11.9 Type 2 diabetes mellitus without complications; Z68.20 Body mass index [BMI] 20.0-20.9, adult; Z87.442 Personal history of urinary calculi; Z86.711 Personal history of pulmonary embolism; Z90.710 Acquired absence of both cervix and uterus; Z99.81 Dependence on supplemental oxygen; Z79.01 Long term (current) use of anticoagulants; Z88.8 Allergy status to other drugs, medicaments and biological substances
CPT/HCPCS: 36415; 71045; 80053; 81001; 82306; 82607; 82728; 82746; 82962; 83540; 83550; 83605; 83880; 84443; 84484; 85025; 85045; 85610; 85652; 85730; 86141; 86160; 87040; 87081; 87086; 87426; 87804; 93005; 93306; 94640; 99291; G0378; J1815; J1885; J2405; J2470; J2543; J3490; J7517

== ENCOUNTER 2024-08-18 13:48 | Emergency (ER) | payer OTHER ==
[~2024-08-18] VITALS: Ht 149.9 cm; Wt 63.0 kg
--- NOTE | 2024-08-18 13:56 | ED.PDOC ---
History of Present Illness HPI Comments This is a 74-year-old female who comes in with chief complaint of rectal pain as well as diarrhea. The patient states that she also noticed some blood when she wiped. She states that the pain is a 9/10. She states that she can not sit down at this time. There has been no nausea, vomiting or diarrhea. There has been no fever or chills. Time Seen by MD: 13:51 Primary Care Provider: ANIA Reviewed Notes: Nurses Notes, Mask Inspector Notes, Medications, Allergies (See list ) Allergies: Coded Allergies: Mupirocin (Verified Allergy, Unknown, 08/06/23) Vancomycin (Verified Allergy, Unknown, 04/28/24) Home Meds Active Scripts Azithromycin (ZITHROMAX TABLET) 250 Mg Tb, 250 MG PO DAILY for 5 Days, #5 TAB take 2 tablets on first day, then 1 tab daily x 4 days afterward Prov:TILA TURNER DO 06/05/23 Reported Medications Ursodiol (Ursodiol) 250 Mg Tab, 500 MG PO BID for 30 Days, MG 04/13/21 Fluticasone-Salmeterol (Advair Diskus 250/50) 1 Puff Ih, 1 PUFF INH BID, #3 INHALER 3 Refills 04/13/21 Levothyroxine Sodium (Levothyroxine Sodium) 50 Mcg Tab, 50 MCG PO QAM for 30 Days, MCG 04/13/21 Mycophenolate Mofetil (Cellcept) 500 Mg Tab, 2 TAB PO BID, #360 TAB 3 Refills 04/13/21 Tacrolimus (Prograf) 1 Mg Gra, 2 MG PO BID, GRA 04/13/21 Benzonatate (Benzonatate) 100 Mg Cap, 100 MG PO DAILY, CAP 04/13/21 Metformin Hydrochloride (Metformin Hcl) 500 Mg Tab, 250 MG PO IBID for 30 Days, MG 04/13/21 Ipratropium [place] Hfa (Atrovent Hfa) 17 Mcg Aer, 2 PUFF INH QID, #12.9 GRAMS 5 Refills 04/13/21 Albuterol Sulfate (Albuterol Sulfate Hfa) 108 Mcg/Act Aer, 108 MCG IN QIDPRN, AER 04/13/21 Omeprazole (Gnp Omeprazole) 20 Mg Tab, 40 MG PO DAILY, TAB 04/13/21 Naloxone HCl (Narcan) 4 Mg/0.1 Ml Spr, 4 MG NA, SPRAY 04/13/21 Guaifenesin-Codeine (Robitussin/Codeine) 10 Ml So, 5 ML PO Q6HP PRN for FOR COUGH, ML 04/13/21 Insulin Regular (Human) (Humulin R) 100 Unit/Ml Inj, 100 UNIT IV ACHS, INJ 04/13/21 Prednisone (Prednisone) 5 Mg Tab, 5 MG PO DAILY, TAB 04/13/21 Information Source: Patient, Emergency Med Personnel Mode of Arrival: EMS Severity: Moderate Timing: Days Duration: Since onset Prehospital treatment: None Location: Rectal pain with rectal bleeding Past Medical History PAST MEDICAL HISTORY: Arthritis, COPD, GERD, Kidney Stones, Liver, MRSA, PE, T hyroid Surgical History: Hysterectomy Surgical History (Other): Right hip surgery OFFICE WORKER History: No Pertinent OFFICE WORKER History Family History Family History: Unknown Social History Smoker: Non-Smoker Alcohol: Denies ETOH Use Drugs: Denies Drug Use Lives In: Home Constitutional: denies: chills, diaphoresis, fatigue, fever, malaise, sweats, weakness, others EENTM: denies: blurred vision, double vision, ear bleeding, ear discharge, ear drainage, ear pain, ear ringing, eye pain, eye redness, hearing loss, mouth pain, mouth swelling, nasal discharge, nose bleeding, nose congestion, nose pain, photophobia, tearing, throat pain, throat swelling, voice changes, others Respiratory: denies: cough, hemoptysis, orthopnea, SOB at rest, shortness of breath, SOB with excertion, stridor, wheezing, others Cardiovascular: denies: chest pain, dizzy spells, diaphoresis, Dyspnea on exertion, edema, irregular heart beat, left arm pain, lightheadedness, palpitations, PND, syncope, others Gastrointestinal: reports: rectal bleeding, rectal pain; denies: abdomen distended, abdominal pain, blood streaked bowels, constipated, diarrhea, dysphagia, difficulty swallowing, hematemesis, melena, nausea, poor appetite, poor fluid intake, vomiting, others Genitourinary: denies: abnormal vagina bleeding, burning, dyspareunia, dysuria, flank pain, frequency, hematuria, incontinence, pain, , vagina discharge, urgency, others Neurological: denies: dizziness, fainting, headache, left sided numbness, left sided weakness, numbness, paresthesia, pre-existing deficit, right sided numbness, right sided weakness, seizure, speech problems, tingling, tremors, weakness, others Musculoskeletal: denies: back pain, gout, joint pain, joint swelling, muscle pain, muscle stiffness, neck pain, others Integumetry: denies: bruises, change in color, change in hair/nails, dryness, laceration, lesions, lumps, rash, wounds, others Allergic/Immunocompromised: denies: Difficulty Healing, Frequent Infections, Hives, Itching, others Hematologic/Lymphatic: denies: anemia, blood clots, easy bleeding, easy bruising, swollen glands, others Endocrine: denies: excessive hunger, excessive sweating, excessive thirst, excessive urination, flushing, intolerance to cold, intolerance to heat, unexplained weight gain, unexplained weight loss, others Psychiatric: denies: anxiety, bipolar disorder, depression, hopeless, panic disorder, schizophrenia, sleepless, suicidal, others Physical Exam General Appearance: Moderate Distress HEENT: Normal ENT Inspection, Pharynx Normal, TMs Normal Neck: Full Range of Motion, Non-Tender, Normal, Normal Inspection Respiratory: Chest Non-Tender, Lungs Clear, No Accessory Muscle Use, No Respiratory Distress, Normal Breath Sounds Cardiovascular: No Edema, No JVD, No Murmur, No Gallop, Normal Peripheral Pulses, Regular Rate/Rhythm Breast Exam: Deferred Gastrointestinal: No Organomegaly, No Pulsatile Mass, Normal Bowel Sounds, Soft, Suprapubic, Tenderness Genitalia: Deferred Pelvic: Deferred Rectal: Deferred Extremities: No calf tenderness, Normal capillary refill, Normal inspection, Normal range of motion, Non-tender, No pedal edema Musculoskeletal : Apperance: Normal Neurologic: Alert, raveler II-XII nml as Tested, No Motor Deficits, Normal Affect, Normal Mood, No Sensory Deficits Cerebellar Function: Normal Reflexes: Normal Skin: Dry, Normal Color, Warm Lymphatic: No Adenopathy Was a procedure done? Was a procedure done?: No Differential Dx Considerations may include: Hemorrhoids, abscess, rectal pain, diverticulitis X-Ray, Labs, Meds, VS Vital Signs Date Time Temp Pulse Resp B/P (MAP) Pulse Ox O2 Delivery O2 Flow Rate FiO2 08/18/24 20:09 103 30 94 Nasal Cannula* 4 36 08/18/24 20:00 98.7 103 30 126/73 (90) 94 98.7 08/18/24 19:55 98.7 103 30 126/73 (90) 94 98.7 08/18/24 17:00 98.2 101 31 126/56 (79) 97 98.2 08/18/24 15:00 102 38 95 Nasal Cannula* 4 36 08/18/24 15:00 98.0 102 38 116/79 (91) 95 98.0 08/18/24 13:55 98.5 95 18 100/80 (87) 95 Lab Test 08/18/24 14:08 Range/Units White Blood Count 6.2 4.4-10.8 10^3/uL Red Blood Count 5.56 H 4.0-5.20 10^6/uL Hemoglobin 13.3 12.2-16.2 g/dL Hematocrit 41.8 36.0-46.0 % Mean Corpuscular Volume 75.3 L 80.0-100.0 fL Mean Corpuscular Hemoglobin 23.9 L 28.0-32.0 pg Mean Corpuscular Hemoglobin Concent 31.7 L 32.0-36.0 g/dL Red Cell Distribution Width 18.9 H 11.8-14.3 % Platelet Count 150 140-450 10^3/uL Mean Platelet Volume 9.5 6.9-10.8 fL Neutrophils (%) (Auto) 55.5 37.0-80.0 % Lymphocytes (%) (Auto) 34.3 10.0-50.0 % Monocytes (%) (Auto) 7.9 0.0-12.0 % Eosinophils (%) (Auto) 1.9 0.0-7.0 % Basophils (%) (Auto) 0.4 0.0-2.0 % Neutrophils # (Auto) 3.5 1.6-8.6 10 ^3/uL Lymphocytes # (Auto) 2.1 0.4-5.4 10 ^3/uL Monocytes # (Auto) 0.5 0-1.3 10 ^3/uL Eosinophils # (Auto) 0.1 0-0.8 10 ^3/uL Basophils # (Auto) 0 0-0.2 10 ^3/uL Nucleated Red Blood Cells 0.3 % Sodium Level 133 L 136-145 mmol/L Potassium Level 3.7 3.5-5.1 mmol/L Chloride Level 100 98-107 mmol/L Carbon Dioxide Level 25 20-31 mmol/L Anion Gap 8 5-15 Blood Urea Nitrogen 11 9-23 mg/dL Creatinine 0.48 L 0.550-1.02 mg/dL Glomerular Filtration Rate Calc 101 >90 mL/min BUN/Creatinine Ratio 22.9 H 10.0-20.0 Serum Glucose 82 74-106 mg/dL Calcium Level 8.7 8.7-10.4 mg/dL Current Medications Medications (Trade) Dose Ordered Sig/Isabel Route Start Time Stop Time Status Last Admin Acetaminophen/ Hydrocodone Bitart ([place] 5/325MG Tab) 1 tab ONCE ONCE PO 08/18/24 14:45 08/18/24 14:46 DC 08/18/24 15:[address] scan of the abdomen and pelvis shows: IMPRESSION: 1. There is no acute process in the abdomen and pelvis. 2. Sigmoid diverticulosis. 3. There is moderate amount of stool and air in the rectosigmoid colon. 4. Chronic interstitial/ fibrotic changes in the visualized lower lungs. The patient was given [place] at this time The patient's CBC and chemistry panel are within normal limits At this time, the patient is being transferred The patient was having persistent pain We spoke with Ania and the patient was being transferred at this time Images Reviewed?: Images reviewed and evaluated by me Time of 1ST Reevaluation: 13:53 Reevaluation 1ST: Unchanged Patient Education/Counseling: Diagnosis, Treatment, Prognosis Family Education/Counseling: No Family Present Additional Information - I reviewed the following notes from patient's past medical encounters: - The following tests were ordered, and results were reviewed by me: (Labs, X- Ray, EKG): cbc,ua, ct abdomen and pelvis w/o contrast, bmp, - Additional information was gathered from interviewing the following independent Historian: (Family, Other Providers, EMT): ems - I reviewed and agreed with the following test results read by other provider: (X-ray, CT, US): radiologist - I discussed treatments and results with medical personnel and: (consultants, family): none Departure 1 Departure Time of Disposition: 16:39 Impression: Primary Impression: Pain, rectal Additional Impression: Generalized weakness Disposition: 51 HOSPICE/MEDICAL FACILITY Condition: Fair Critical Care Note Critical Care Time?: No Stability Stability form required: Yes Stable for transfer: Intended for transfer (Health plan request transfer), To designated facility Heart Score Heart Score: Heart Score Response (Comments) Value History N/A 0 EKG N/A 0 Age N/A 0 Risk Factors N/A 0 Troponin N/A 0 Total 0 I personally scribed for ANTONIO HILLS MD ([email or web address]) on 08/18/24 at 16:08. Electronically submitted by Gabriela Victor ([email or web address]). ANTONIO HILLS MD Aug 18, 2024 13:56
[2024-08-18] MEDS ORDERED: MORPHINE SULFATE 4 MG/ML SYR/VIAL IV ONE (14:00)
[2024-08-18] MEDS ORDERED: ONDANSETRON HCL 4 MG/2 ML VIAL IV ONE (14:00)
[2024-08-18 14:41] LABS: Basophils # (auto) 0 10 ^3/uL (0-0.2); Eosinophils # (auto) 0.1 10 ^3/uL (0-0.8); Hemoglobin 13.3 g/dL (12.2-16.2); Lymphocytes # (auto) 2.1 10 ^3/uL (0.4-5.4); Monocytes # (auto) 0.5 10 ^3/uL (0-1.3); Nucleated Red Blood Cells % 0.3 %
[2024-08-18 14:44] LABS: Basophils % (auto) 0.4 % (0.0-2.0); Eosinophils % (auto) 1.9 % (0.0-7.0); Hematocrit 41.8 % (36.0-46.0); Lymphocytes % (auto) 34.3 % (10.0-50.0); Mean Corpuscular Hemoglobin 23.9 pg (28.0-32.0); Mean Corpuscular Hgb Conc. 31.7 g/dL (32.0-36.0); Mean Corpuscular Volume 75.3 fL (80.0-100.0); Monocytes % (auto) 7.9 % (0.0-12.0); Neutrophils # (auto) 3.5 10 ^3/uL (1.6-8.6); Neutrophils % (auto) 55.5 % (37.0-80.0); Platelet Count (auto) 150 10^3/uL (140-450); Red Blood Cells 5.56 10^6/uL (4.0-5.20); Red Cell Distribution Width 18.9 % (11.8-14.3); White Blood Cell 6.2 10^3/uL (4.4-10.8)
[2024-08-18 14:50] LABS: Anion Gap 8 (5-15); Carbon Dioxide 25 mmol/L (20-31); Chloride 100 mmol/L (98-107); Potassium 3.7 mmol/L (3.5-5.1)
[2024-08-18 14:56] LABS: BUN/Creatinine Ratio 22.9 (10.0-20.0); Blood Urea Nitrogen 11 mg/dL (9-23); Glucose 82 mg/dL (74-106)
[2024-08-18 15:00] VITALS: PULSE 102; RESP 38; O2SAT 95
[2024-08-18 15:13] LABS: Calcium 8.7 mg/dL (8.7-10.4); Sodium 133 mmol/L (136-145)
[2024-08-18] MEDS: HYDROcodone-ACET 5/325MG TAB PO ONE (15:40)
--- NOTE | 2024-08-18 16:04 | DVH ---
CT ABDOMEN AND PELVIS WITHOUT CONTRAST CLINICAL HISTORY: pain TECHNIQUE: Multiple contiguous axial images of the abdomen and pelvis without intravenous contrast. The images were reformatted degenerate coronal and sagittal reconstructions. All CT scans at this medical facility are performed using dose modulation techniques as appropriate t o a performed exam including the following:Automated exposure control was utilized; adjustment of the MA and/or KV according to patient size; and use of iterative reconstruction technique. Radiation Dose Information: CT Dose: CTDI volume is 6 mGy. Dose-length product is 323 mGy*cm Comparison: None FINDINGS: Evaluation of the abdomen and pelvis is limited without intravenous contrast. The gallbladder is surgically absent. The liver, pancreas, kidneys, adrenal glands, and spleen leonardo ear within normal limits. There is no gross evidence of abdominal lymphadenopathy. There are few nonspecific dystrophic calcifi cations in the mesentery, the largest in the left mid abdomen measuring 12 mm. There is no free fluid or free air. The stomach grossly appears unremarkable. The small and large bowel loops demonstrate normal caliber . There are multiple diverticula in the sigmoid colon without evidence of acute diverticulitis. The re is moderate amount of stool and air in the rectosigmoid colon. The abdominal aorta and IVC appear within normal limits. There is moderate streak artifact from right hip arthroplasty limiting evaluation of the pelvis. The bladder grossly appears within normal limits. The pelvic organs not adequately seen. Pelvic organ ap pears within normal limits. There is no gross evidence of a pelvic mass. There is no free fluid [place] ection. There are chronic interstitial/ fibrotic changes in the visualized lower lungs. There is levoconvex scoliosis of the lumbar spine with multilevel spondylosis. IMPRESSION: 1. There is no acute process in the abdomen and pelvis. 2. Sigmoid diverticulosis. 3. There is moderate amount of stool and air in the rectosigmoid colon. 4. Chronic interstitial/ fibrotic changes in the visualized lower lungs. HS:Y
[2024-08-18] MEDS: FLEET ENEMA(ADULT) 135 ML PR ONE (17:00)
[2024-08-18 20:09] VITALS: PULSE 103; RESP 30; O2SAT 94
[2024-08-18 20:52] VITALS: BP 110/75; PULSE 95; RESP 24; TEMP 98.9; O2SAT 96
== END 2024-08-18 21:44 | disposition hospice, inpatient (51) ==
LOC: EDBD 13:48 → ER 13:48
DX: K62.89 Other specified diseases of anus and rectum (principal); R53.1 Weakness; J44.9 Chronic obstructive pulmonary disease, unspecified; K21.9 Gastro-esophageal reflux disease without esophagitis; M19.90 Unspecified osteoarthritis, unspecified site; Z90.710 Acquired absence of both cervix and uterus; Z98.890 Other specified postprocedural states; Z88.1 Allergy status to other antibiotic agents; Z88.8 Allergy status to other drugs, medicaments and biological substances; Z79.51 Long term (current) use of inhaled steroids; Z79.52 Long term (current) use of systemic steroids; Z79.621 Long term (current) use of calcineurin inhibitor; Z79.624 Long term (current) use of inhibitors of nucleotide synthesis; Z79.899 Other long term (current) drug therapy
CPT/HCPCS: 36415; 74176; 80048; 85025

== ENCOUNTER 2024-09-27 11:15 | Inpatient (IN) | payer OTHER, MEDICAID ==
[~2024-09-27] VITALS: Ht 167.6 cm; Wt 59.0 kg
[2024-09-27] VITALS (8 sets, daily range): BP systolic 43–122; BP diastolic 27–86; PULSE 35–144; RESP 14–26; TEMP 97.7; O2SAT 67–100
[2024-09-27] MEDS ORDERED: ETOMIDATE (2MG/ML) 20ML VIAL IV ONE (11:25)
[2024-09-27] MEDS ORDERED: ROCURONIUM 10MG/ML 10ML VIAL IV ONE (11:26)
[2024-09-27] MEDS: ETOMIDATE (2MG/ML) 20ML VIAL IV ONE (11:30)
[2024-09-27] MEDS: ROCURONIUM 10MG/ML 10ML VIAL IV ONE (11:30)
[2024-09-27] MEDS: MIDAZOLAM DRIP 50 mg/50mL 50 ML IV ONE (11:38)
[2024-09-27] MEDS: EPINEPHrine HCL 1 MG/10 ML SYRG IV ONE ×2 (11:39→11:43)
[2024-09-27] MEDS: ATROPINE SULF 1 MG/10ml SYR IV ONE (11:42)
[2024-09-27] MEDS: SODIUM BICARB 8.4% 50Meq/50ml SYR Vial IV ONE (11:42)
[2024-09-27] MEDS: NOREPINEPHRINE 8 MG/250ML KIT 250 ML IV ONE (11:44)
[2024-09-27] MEDS: NOREPINEPHRINE 8 MG/250ML KIT 250 ML IV SCH (11:53)
[2024-09-27] MEDS: AMIODARONE BOLUS KIT 100 ML IV ONE (11:55)
[2024-09-27] MEDS: MIDAZOLAM DRIP 50 mg/50mL 50 ML IV SCH (11:55)
[2024-09-27] MEDS: PHENYLEPHRINE IV 250 ML IV ONE (12:09)
[2024-09-27] MEDS: PHENYLEPHRINE IV 250 ML IV SCH (12:11)
--- NOTE | 2024-09-27 12:13 | ED.PDOC ---
SOB-HPI HPI Comments 74 year old female brought in by EMS presents to the ED with a chief complaint of shortness of breath onset today (09/27/24) around 10:30. Per EMS, upon their arrival patient's family is deaf, not able to communicate with EMS. O2 sat was in the 80s, breathing treatment and placed on NRM 15L. Patient is currently on amoxicillin, being treated for pneumonia according to EMS. Upon ED arrival, BP 70/40, BS 170, HR 177. Patient has RLE IO in place. Patient says "pain" "help me", is hitting her chest, is not able to answer any questions. PMHx COPD, GERD, arthritis, thyroid, kidney stones, PE, MRSA. No other symptoms could be obtained from patient. 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: No Pertinent SALES TEAM RECRUITER History Family History Family History: Unknown Social History Smoker: Non-Smoker Alcohol: Denies ETOH Use Drugs: Denies Drug Use Lives In: Home Unable to Obtain due to: Medical Urgency Physical Exam General Appearance: Severe Distress HEENT: Pharynx Normal Neck: Non-Tender Respiratory: Other (Tachypneic) Cardiovascular: Tachycardia Breast Exam: Deferred Gastrointestinal: No Organomegaly, Non Tender, No Pulsatile Mass, Normal Bowel Sounds, Soft Genitalia: Deferred Pelvic: Deferred Rectal: Deferred Extremities: Normal range of motion Neurologic: No Motor Deficits Cerebellar Function: NOT DONE Reflexes: NOT DONE Skin: Cyanosis Lymphatic: No Adenopathy Was a procedure done? 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: Attending Physician Indication: Hypotension, Inability to obtain IV Room prepared for procedure: Yes Manager Special Events performed hand hygien: Yes Maximal sterile barrier precau: Mask/Eye shield, Sterile gown, Cap, Sterlie gloves, Large sterlie drape Skin Preparation: Chlorhexidine gluconate, Providine iodine, Alcohol Skin preparation completely dr: Yes Insertion site: Left, Femoral Central line catheter type: Wjg-[id number]-[id number] dialysis Number of lumens: 3 Central line exchanged over a: No Antiseptic ointment applied to: Yes Post Assessment: Proper placement Informed consent obtained: Yes Risks/benefits/alt described: Yes Intubation Indication: Respiratory Insufficiency Prep: Preoxygenation Pretreated with: Sedation, Atropine Medicated with: Other (Midazolam) Intubation Approach: Orotracheal Informed consent obtained: Yes Risks/benefits/alt described: Yes Differential Dx Differential Diagnosis: Bronchitis, CHF, COPD, Hyponatremia, Pneumonia, Sinusitis, Pharyngitis, URI X-Ray, Labs, Meds, VS Vital Signs Date Time Temp Pulse Resp B/P (MAP) Pulse Ox O2 Delivery O2 Flow Rate FiO2 09/27/24 14:50 112 15 97/67 (77) 100 09/27/24 14:45 98/73 09/27/24 14:45 110 15 90/63 (72) 100 09/27/24 14:42 109 15 86/58 (67) 100 09/27/24 14:35 82/57 09/27/24 14:35 110 15 78/55 (63) 100 09/27/24 14:31 107 15 108/72 (84) 100 09/27/24 14:30 108 15 98/73 (81) 100 30 09/27/24 14:25 105 15 127/78 (94) 100 09/27/24 14:20 106 15 133/79 (97) 100 09/27/24 14:20 139/83 09/27/24 14:15 105 15 140/83 (102) 100 09/27/24 14:10 104 15 144/84 (104) 100 09/27/24 14:05 104 15 139/81 (100) 100 09/27/24 14:04 141/81 09/27/24 14:04 141/81 09/27/24 14:04 141/81 09/27/24 14:04 141/85 09/27/24 14:04 141/81 09/27/24 14:00 102 15 142/82 (102) 100 09/27/24 13:55 147/85 09/27/24 13:55 107 15 148/85 (106) 100 09/27/24 13:50 116 15 148/87 (107) 100 09/27/24 13:45 140/85 09/27/24 13:45 119 15 134/83 (100) 100 09/27/24 13:40 120 15 127/79 (95) 100 09/27/24 13:35 120 15 132/81 (98) 100 09/27/24 13:30 120 15 134/82 (99) 100 09/27/24 13:25 121 15 126/78 (94) 100 09/27/24 13:20 124/80 09/27/24 13:20 121 15 125/81 (96) 100 09/27/24 13:20 148 Ambu-Bag 148 09/27/24 13:15 122 15 128/79 (95) 100 09/27/24 13:10 122 15 124/78 (93) 100 09/27/24 13:04 124/79 09/27/24 13:04 120/76 09/27/24 13:04 120/76 09/27/24 13:04 120/76 09/27/24 13:04 120/76 09/27/24 13:00 129 15 119/76 (90) 100 09/27/24 12:55 121 15 118/72 (87) 100 09/27/24 12:55 105/79 09/27/24 12:50 116 15 114/69 (84) 100 09/27/24 12:45 100/63 09/27/24 12:45 116 15 99/64 (76) 100 09/27/24 12:41 119 15 91/61 (71) 100 09/27/24 12:40 88/60 09/27/24 12:35 117 15 89/59 (69) 100 09/27/24 12:35 91/58 09/27/24 12:30 121 15 103/67 (79) 100 09/27/24 12:25 122 15 107/69 (82) 100 09/27/24 12:25 106/69 09/27/24 12:20 93/49 09/27/24 12:20 101/65 09/27/24 12:15 121 15 93/49 (64) 100 09/27/24 12:11 92/56 09/27/24 12:10 120 15 92/56 (68) 100 09/27/24 12:06 121 15 71/35 (47) 100 09/27/24 12:04 92/70 09/27/24 12:04 92/70 09/27/24 12:04 92/70 09/27/24 12:04 92/70 09/27/24 12:04 92/70 09/27/24 12:02 125 15 74/43 (53) 100 09/27/24 12:00 132 09/27/24 11:57 148 15 92/70 (77) 100 09/27/24 11:57 88/60 09/27/24 11:57 88/60 09/27/24 11:57 88/60 09/27/24 11:57 88/60 09/27/24 11:57 88/60 09/27/24 11:55 105/79 09/27/24 11:53 88/60 09/27/24 11:48 148 14 92/70 (77) 100 09/27/24 11:47 140 15 127/93 (104) 100 09/27/24 11:40 97.0 57 16 97.0 09/27/24 11:40 57 16 Room Air* 0 21 09/27/24 11:38 30 09/27/24 11:21 177 28 130/81 (97) 80 Lab Test 09/27/24 13:29 09/27/24 13:16 09/27/24 12:00 Range/Units Blood Gas Specimen Type Arterial Blood Gas Sample Site Left radial Blood Gas Patient Temperature 37.0 Arterial Blood Date Drawn [id number] Arterial Blood pH 7.246 *L 7.350-7.450 Arterial Blood Partial Pressure CO2 44.2 32.0-45.0 mmHg Arterial Blood Partial Pressure O2 500.5 *H 83.0-108.0 mmHg Arterial Blood HCO3 18.8 L 21.0-28.0 mmol/L Arterial Blood Oxygen Saturation 99.7 H 94.0-98.0 % Arterial Blood Base Excess -8.2 L -2.0-3.0 mmol/L Arterial Blood Oxyhemoglobin 99.1 H 94.0-98.0 % Arterial Blood Carboxyhemoglobin 0.2 L 0.5-1.5 % Arterial Blood Methemoglobin 0.4 0.0-1.5 % Monico Test Modified Blood Gas Total Hemoglobin 11.40 L 12.0-16.0 g/dL Blood Gas Set Respiration Rate 14.0 Blood Gas Modality Vent - ac FiO2 % 100.0 Blood Gas Tidal Volume 450.0 Blood Gas PEEP or CPAP 5.0 Blood Gas Critical Value Read Back Yes Blood Gas Notified Whom Blood Gas Notified Time [id number] Blood Gas Notified By Padmini alonzo Sodium Level 141 136-145 mmol/L Potassium Level 4.1 3.5-5.1 mmol/L Chloride Level 106 98-107 mmol/L Carbon Dioxide Level 21 20-31 mmol/L Anion Gap 14 5-15 Blood Urea Nitrogen 17 9-23 mg/dL Creatinine 0.80 0.550-1.02 mg/dL Glomerular Filtration Rate Calc 78 >90 mL/min BUN/Creatinine Ratio 21.3 H 10.0-20.0 Serum Glucose 92 74-106 mg/dL Calcium Level 7.7 L 8.7-10.4 mg/dL Total Bilirubin 1.1 H 0.2-1.0 mg/dL Aspartate Amino Transferase (AST) 140 H 13-40 U/L Alanine Aminotransferase (ALT) 55 H 7-40 U/L Alkaline Phosphatase 569 H 46-116 U/L Troponin I High Sensitivity 122 *H 75 *H </=34 ng/L Total Protein 4.6 L 5.7-8.2 g/dL Albumin 1.9 L 3.2-4.8 g/dL Lipase 24 12-53 U/L Plasma/Serum Blood Alcohol < 3.0 <10 mg/dL Prothrombin Time 13.7 H 9.3-11.8 sec Prothrombin Time INR 1.33 H 0.9-1.15 Activated Partial Thromboplast Time 35.1 H 24.5-34.5 SEC Lactic Acid Level 11.4 *H 0.4-2.0 mmol/L Microbiology Date/Time Source Procedure Growth Status 09/27/24 12:00 Blood Blood Culture - Final NO GROWTH AFTER 5 DAYS OF INCUBATION. Complete 09/27/24 12:00 Blood Blood Culture - Final NO GROWTH AFTER 5 DAYS OF INCUBATION. Complete 09/27/24 11:58 Sputum Gram Stain - Final Complete 09/27/24 11:58 Respiratory Culture - Final Klebsiella oxytoca Complete [facility] [id number] [facility] [address] Ph: [phone] DIAGNOSTIC IMAGING Diagnostic Imaging Report : [id number] Signed PATIENT: TATUM MORA ACCT: [id number] UNIT: [id number] : 1950 LOC: ER ROOM / BED: / AGE / SEX: 74 / F ADM STATUS: REG ER SERVICE 1220 ORDERING PHYSICIAN: RON ADHIKARI MD PROCEDURE(s): CXRP - CHEST PORTABLE REASON: intubated ORDER NUMBER(s): [id number], ACCESSION NUMBER(s): [id number] CHEST RADIOGRAPH Indication: intubated Technique: Single frontal view of the chest was obtained Comparison: XY CHEST XRAY 1 VIEW on DOS: 08/08/24, XY CHEST PORTABLE on DOS: 08/04/24, XY CHEST PORTABLE on DOS: 04/28/24, XY CHEST PORTABLE on DOS: 06/03/23, XY CHEST PORTABLE on DOS: 08/04/24 FINDINGS: Lines and Tubes: ET tube 3 cm from pallavi Lungs: Multifocal bilateral alveolar and interstitial opacities. Pleura: No effusion. No pneumothorax. Cardiomediastinal contours: Unremarkable Bones: No acute osseous abnormality. IMPRESSION: 1. Multifocal bilateral interstitial and alveolar opacities, slightly worsened compared to 04/28/2024. ATED BY: CHARISMA YAN MD DICTATED DATE/TIME: 09/27/241244 SIGNED BY: CHARISMA YAN MD SIGNED DATE/TIME: 09/27/241244 CC: X-Ray, Labs, Meds, VS Comment [address] Michaela Leigh: Was advised that the patient was declining. The patient's family had requested comfort measures only. At 2030, the patient's cardiac rhythm on the monitor was asystole. There was no palpable pulse. There were no spontaneous respirations above event. There were no cardiac sounds auscultated. Patient was pronounced at 8:31 p.m.. Time of 1ST Reevaluation: 11:46 Reevaluation 1ST: Unchanged Patient Education/Counseling: Pt Unresponsive Family Education/Counseling: No Family Present Additional Information The following tests were ordered, and results were reviewed by me: RESPIRATORY CULTURE W/ GS, BNP, CBC, CMP, LA W/ REFLEX, LIPASE, TROP -x3, UA, EKG -x3, XY CHEST, DRUG SCREEN, COVID, RAPID INFLUENZA A&B, BLOOD ALCOHOL, BLOOD CULTURE, PTPTT Additional Information was gathered from interviewing the following independent historians: EMS I reviewed and agreed with the following test results read by other providers: XY CHEST I discussed treatment and results with medical personnel and:mother Departure 1 Departure Time of Disposition: 05:39 (Patient presented in distress. Patient was int ubated central line placed. Arterial line placed. Patient is started on pressors fluids antibiotics and was admitted to the ICU) Impression: Primary Impression: Acute on chronic respiratory failure Qualified Codes: J96.21 - Acute and chronic respiratory failure with hypoxia Additional Impression: Cardiac arrest Disposition: ADMITTED INPATIENT Admit to: ICU Condition: Critical Critical Care Note Critical Care Time?: Yes Critical care comment: Respiratory failure Authorized and Performed by: Ron Adhikari MD Total critical care time: Approximately 155 minutes Due to a high probability of clinically significant, life threatening deterioration, the patient required my highest level of preparedness to intervene emergently and I personally spent this critical care time directly and personally managing the patient. This critical care time included obtaining a history; examining the patient; pulse oximetry; ordering and review of studies; arranging urgent treatment with development of a management plan; evaluation of patient's response to treatment; frequent reassessment; and, discussions with other providers. This critical care time was performed to assess and manage the high probability of imminent, life-threatening deterioration that could result in multi-organ failure. It was exclusive of separately billable procedures and treating other patients and teaching time. Please see my other sections and the rest of the note for further information on patient assessment and treatment. Stability Stability form required: No Heart Score Heart Score: Heart Score Response (Comments) Value History Slightly Suspicious 0 EKG Repolarization Disturb 1 Age >65 2 Risk Factors >3 or Hx ASHD 2 Troponin >3 x's Normal limit 2 Total 7 I personally scribed for RON ADHIKARI MD ([email or web address]) on 09/27/24 at 12:13. Electronically submitted by Leilani Smith ([email or web address]). I personally scribed for RON ADHIKARI MD ([facility] on 09/27/24 at 12:22. Electronically submitted by Leilani Smith ([email or web address]). I personally scribed for RON ADHIKARI MD ([facility]) on 09/27/24 at 12:41. Electronically submitted by Leilani Smith ([email or web address]). I personally scribed for RON ADHIKARI MD ([facility]) on 09/27/24 at 12:52. Electronically submitted by Leilani Smith ([email or web address]). I personally scribed for RON ADHIKARI MD ([facility]) on 09/27/24 at 12:53. Electronically submitted by Leilani Smith ([email or web address]). RON ADHIKARI MD Sep 27, 2024 12:13 FEI MUNOZ MD Sep 27, 2024 23:12
[2024-09-27] MEDS: VASOPRESSIN 20 UNITS in SODIUM CHL 0.9% 99 ML IV SCH (12:20)
[2024-09-27] MEDS ORDERED: VASOPRESSIN 20 UNITS in SODIUM CHL 0.9% 99 ML IV SCH (12:45)
--- NOTE | 2024-09-27 12:47 | DVH ---
CHEST RADIOGRAPH Indication: intubated Technique: Single frontal view of the chest was obtained Comparison: XY CHEST XRAY 1 VIEW on DOS: 08/08/24, XY CHEST PORTABLE on DOS: 08/04/24, XY CHEST PORTABLE on DOS: 04/28/24, XY CHEST PORTABLE on DOS: 06/03/23, XY CHEST PORTABLE on DOS: 08/04/24 FINDINGS: Lines and Tubes: ET tube 3 cm from pallavi Lungs: Multifocal bilateral alveolar and interstitial opacities. Pleura: No effusion. No pneumothorax. Cardiomediastinal contours: Unremarkable Bones: No acute osseous abnormality. IMPRESSION: 1. Multifocal bilateral interstitial and alveolar opacities, slightly worsened compared to 04/28/2024 .
[2024-09-27] MEDS: VASOPRESSIN 20 UNIT/ML ONE (12:52)
[2024-09-27] MEDS: SODIUM CHLORIDE 0.9% 1,000 ML IV ONE (13:00)
[2024-09-27 13:04] LABS: Lactic Acid w/Reflex 11.4 mmol/L (0.4-2.0)
[2024-09-27 13:09] LABS: INR 1.33 (0.9-1.15); Partial Thromboplastin Time 35.1 SEC (24.5-34.5); Prothrombin Time 13.7 sec (9.3-11.8)
--- NOTE | 2024-09-27 13:20 | RESUS ---
CODE BLUE ASSESSSMENT History of Events History of Events: BIBA FOR SOB. INITIAL SAT IN THE 80'S, MED NEB TX EN ROUTE PT ON NRM AT 15L/NC, UNRESPONSIVE. PT TAKEN TO ER BED 9 AND LOST PULSES MINUTES LATER. Initial Information Date: Sep 27, 2024 Time: 11:44 Location of Arrest: ER CPR started initial time: 11:44 CPR started by whom: Hospital Staff Pre-Hospital Care: ACLS Type of arrest: Cardiac Pulse Present: No Monitoring: Telemetry Crash Cart Opened and Supplies: Yes Airway Ventilation Breathing at Onset: Assisted Oxygen Delivery Method: Ambu-Bag Intubation Time: 11:58 Intubation Size: 8.0 cuffed Intubated by: DR OSORIO Intubated orally: Yes Tube secured at: 23 Confirmation: Auscultation, Exhaled CO2, Chest X-ray Circulation Circulation #1: Time: 11:44 Pulse Rate (adult): 0 Blood Pressure Systolic: 0 Blood Pressure Diastolic: 0 Circulation #2: Time: 11:46 Pulse Rate (adult): 148 Blood Pressure Systolic: 127 Blood Pressure Diastolic: 93 Medications & Response Medications and Responses #1: Medication Time: 11:44 ADULT Medications Given ADULT: Epinephrine 1 mg Route of Administration: IO EKG Rhythm: PEA EKG Rhythm: PEA Medications and Responses #2: Medication Time: 11:57 ADULT Medications Given ADULT: Amiodarone 150 mg Heart Rate: 148 EKG Rhythm: Sinus Tachycardia EKG Rhythm: Sinus Tachycardia Nurses Notes Spring Coma Scale Eye Opening: None (1) Spring Coma Scale Verbal: None (1) Spring Coma Scale Motor: None (1) Time Code Ended Time Code Ended: 11:46 Post Arrest Status: Ventilated Outcome of code: Successful Code Team Present: DR RON FRASER RT BRYANT RT DR JO SCHULTE ROSC Time of ROSC: 11:46 JULIA SANFORD Sep 27, 2024 13:20
[2024-09-27] MEDS: VANCOMYCIN 1GM/250ML KIT 200 ML IV ONE (13:39)
[2024-09-27 13:41] LABS: Anion Gap 14 (5-15)
[2024-09-27 13:43] LABS: Base Excess -8.2 mmol/L (-2.0-3.0)
[2024-09-27 14:04] LABS: Alkaline Phosphatase 569 U/L (46-116); Aspartate Aminotransferase 140 U/L (13-40); Bilirubin, Total 1.1 mg/dL (0.2-1.0); Calcium 7.7 mg/dL (8.7-10.4); Carbon Dioxide 21 mmol/L (20-31); Chloride 106 mmol/L (98-107); Glucose 92 mg/dL (74-106); Potassium 4.1 mmol/L (3.5-5.1); Sodium 141 mmol/L (136-145); Total Protein 4.6 g/dL (5.7-8.2)
[2024-09-27 14:05] LABS: Albumin 1.9 g/dL (3.2-4.8); Blood Alcohol < 3.0 mg/dL (<10)
[2024-09-27] MEDS: AZITHROMYCIN 500MG/ 250ML 250 ML IV ONE (14:18)
[2024-09-27 14:23] LABS: Alanine Aminotransferase 55 U/L (7-40); BUN/Creatinine Ratio 21.3 (10.0-20.0); Blood Urea Nitrogen 17 mg/dL (9-23)
[2024-09-27] MEDS ORDERED: EPINEPHrine HCL 250 ML IV SCH (14:45)
[2024-09-27] MEDS: DOPamine 1600MCG/ML D5W 250 ML IV SCH (14:45)
[2024-09-27] MEDS: DOPamine 1600MCG/ML D5W 250 ML IV ONE (14:51)
[2024-09-27] MEDS ORDERED: HYDROcodone-ACET 5/325MG TAB PO PRN (15:00)
[2024-09-27] MEDS ORDERED: ACETAMINOPHEN 325 MG TAB PO PRN (15:00)
[2024-09-27] MEDS ORDERED: MORPHINE SULFATE INJ 2 MG/ml SYRG IV PRN ×2 (15:00→19:00)
[2024-09-27] MEDS ORDERED: NITROGLYCERIN 0.4 MG SL TAB SL PRN (15:00)
[2024-09-27] MEDS ORDERED: ONDANSETRON HCL 4 MG/2 ML VIAL IV PRN ×2 (15:00→19:00)
--- NOTE | 2024-09-27 15:07 | DVHHP2 ---
History of Present Illness Reason for Visit: Shortness of breath History of Present Illness Jennifer Cameron is a 74-year-old female with past medical history of GERD, COPD, arthritis, diabetes, hypothyroidism, PE, and MRSA, who was brought to the hospital for shortness of breath. Per EMS, upon their arrival patient's family is deaf, not able to communicate with EMS. O2 sat was in the 80s, breathing treatment and placed on NRM 15L. Upon ED arrival, BP 70/40, BS 170, HR 177. Patient has RLE IO in place. Patient says "pain" "help me", is hitting her chest, is not able to answer any questions. Shortly after arrival to ER patient coded, see code blue documentation. On assessment patient is intubated, and on multiple vasopressors to maintain her blood pressure. IV fluids and antibiotics have been started. In previous notes patient is on hospice. Will reach out to family to confirm level of care desired. Pulmonary: COPD, Pulmonary embolus GI: GERD Endocrine: Diabetes, Hypothyroidism Past Surgical History: Hysterectomy Family History: None Smoke: No ALCOHOL: none Drugs: None Lives: with Family Domestic Violence: Neg Review of Systems Constitutional: No: Fever, Chills, Sweats, Weakness, Malaise, Other Eyes: No: Pain, Vision change, Conjunctivae inflammation, Eyelid inflammation, Other, Redness ENT: No: Ear pain, Ear discharge, Nose pain, Nose discharge, Nose congestion, Mouth pain, Mouth swelling, Throat pain, Throat swelling, Other Respiratory: Shortness of breath, SOB with excertion; No: Cough, Dry, Wheezing, Hemoptysis, Pleuritic Pain, Sputum, Wheezing, Other Cardiovascular: No: Chest Pain, Palpitations, Orthopnea, Paroxysmal Noc. Dyspnea, Edema, Lt Headedness, Other Gastrointestinal: No: Nausea, Vomiting, Abdominal Pain, Diarrhea, Constipation, Melena, Hematochezia, Other Genitourinary: No Dysuria, No Frequency, No Incontinence, No Hematuria, No Retention, No Other Musculoskeletal: No: other, neck pain, shoulder pain, arm pain, back pain, hand pain, leg pain, foot pain Skin: No: Rash, Lesions, Jaundice, Bruising, Other Neurological: No: Weakness, Numbness, Incoordination, Change in speech, Confusion, Seizures, Other Allergies: Coded Allergies: Mupirocin (Verified Allergy, Unknown, 08/06/23) Vancomycin (Verified Allergy, Unknown, 04/28/24) Medications Current Medications Medications Dose Ordered Sig/Isabel Route Start Time Stop Time Status Last Admin Dose Admin Midazolam HCl 50 ml @ 1 mls/hr Q24H IV 09/27/24 11:30 09/27/24 11:55 1 MLS/HR Norepinephrine Bitartrate 250 ml @ 3.75 mls/hr Q24H IV 09/27/24 12:15 09/27/24 11:53 18.75 MLS/HR Phenylephrine HCl 250 ml @ 30 mls/hr Q8H20M IV 09/27/24 12:15 09/27/24 12:11 30 MLS/HR Vasopressin 20 units/Sodium Chloride 100 ml @ 9 mls/hr Q11H7M IV 09/27/24 12:45 09/27/24 12:20 9 MLS/HR Dopamine HCl/ Dextrose 250 ml @ 11.063 mls/ hr [id number] IV 09/27/24 14:45 UNV Epinephrine HCl 250 ml @ 7.5 mls/hr Q24H IV 09/27/24 14:45 UNV Exam Vital Signs Vital Signs Date Time Temp Pulse Resp B/P (MAP) Pulse Ox O2 Delivery O2 Flow Rate FiO2 09/27/24 14:30 108 15 98/73 (81) 100 30 09/27/24 13:20 Ambu-Bag General Appearance: Other (sedated and intubated) HEENT: Atraumatic Respiratory: Other (sedated and intubated. diminished breath sounds) Cardiovascular: Normal S1, Normal S2, Other (tachycardia) Abdominal: Normal bowel sounds, Soft, No tenderness Extremities: No clubbing, No cyanosis, No edema, Normal pulses Skin: No breakdown (sacral wound) Neuro: Other (sedated and intubated) Labs/Xrays Labs Test 09/27/24 13:29 09/27/24 13:16 09/27/24 12:00 Range/Units Blood Gas Specimen Type Arterial Blood Gas Sample Site Left radial Blood Gas Patient Temperature 37.0 Arterial Blood Date Drawn [id number] Arterial Blood pH 7.246 *L 7.350-7.450 Arterial Blood Partial Pressure CO2 44.2 32.0-45.0 mmHg Arterial Blood Partial Pressure O2 500.5 *H 83.0-108.0 mmHg Arterial Blood HCO3 18.8 L 21.0-28.0 mmol/L Arterial Blood Oxygen Saturation 99.7 H 94.0-98.0 % Arterial Blood Base Excess -8.2 L -2.0-3.0 mmol/L Arterial Blood Oxyhemoglobin 99.1 H 94.0-98.0 % Arterial Blood Carboxyhemoglobin 0.2 L 0.5-1.5 % Arterial Blood Methemoglobin 0.4 0.0-1.5 % Monico Test Modified Blood Gas Total Hemoglobin 11.40 L 12.0-16.0 g/dL Blood Gas Set Respiration Rate 14.0 Blood Gas Modality Vent - ac FiO2 % 100.0 Blood Gas Tidal Volume 450.0 Blood Gas PEEP or CPAP 5.0 Blood Gas Critical Value Read Back Yes Blood Gas Notified Whom Blood Gas Notified Time [id number] Blood Gas Notified By Padmini alonzo Sodium Level 141 136-145 mmol/L Potassium Level 4.1 3.5-5.1 mmol/L Chloride Level 106 98-107 mmol/L Carbon Dioxide Level 21 20-31 mmol/L Anion Gap 14 5-15 Blood Urea Nitrogen 17 9-23 mg/dL Creatinine 0.80 0.550-1.02 mg/dL Glomerular Filtration Rate Calc 78 >90 mL/min BUN/Creatinine Ratio 21.3 H 10.0-20.0 Serum Glucose 92 74-106 mg/dL Calcium Level 7.7 L 8.7-10.4 mg/dL Total Bilirubin 1.1 H 0.2-1.0 mg/dL Aspartate Amino Transferase (AST) 140 H 13-40 U/L Alanine Aminotransferase (ALT) 55 H 7-40 U/L Alkaline Phosphatase 569 H 46-116 U/L Troponin I High Sensitivity 122 *H </=34 ng/L Total Protein 4.6 L 5.7-8.2 g/dL Albumin 1.9 L 3.2-4.8 g/dL Plasma/Serum Blood Alcohol < 3.0 <10 mg/dL Prothrombin Time 13.7 H 9.3-11.8 sec Prothrombin Time INR 1.33 H 0.9-1.15 Activated Partial Thromboplast Time 35.1 H 24.5-34.5 SEC Lactic Acid Level 11.4 *H 0.4-2.0 mmol/L CHEST RADIOGRAPH FINDINGS: Lines and Tubes: ET tube 3 cm from pallavi Lungs: Multifocal bilateral alveolar and interstitial opacities. Pleura: No effusion. No pneumothorax. Cardiomediastinal contours: Unremarkable Bones: No acute osseous abnormality. IMPRESSION: 1. Multifocal bilateral interstitial and alveolar opacities, slightly worsened c ompared to 04/28/2024. Assessment/Plan Assessment/Plan Assessment: Acute on chronic respiratory failure, Sepsis, Lactic acidosis, Pneumonia, UTI, Plan: Admit to ICU, IV hydration, IV antibiotics, Blood cultures, Urine cultures, Vasopressors as needed, Breathing treatments, IV steroids, Plan discussed with: Patient My Orders Orders - SADIA MALDONADO Procedure Category Date Status Time Admit ADMIT 09/27/24 Transmitted 14:53 Code Status CODE 09/27/24 Transmitted 14:53 Hydrocodone-Acet PHA 09/27/24 Transmitted 5/325mg Tab ([place] 15:00 Ondansetron Hcl PHA 09/27/24 Transmitted (Zofran) 15:00 Enoxaparin Sodium PHA 09/28/24 Transmitted (Lovenox) 10:00 Complete Blood Count LAB 09/28/24 Verified 04:00 Comprehensive LAB 09/28/24 Verified Metabolic Panel 04:00 Npo (Nothing By DIET 09/27/24 Transmitted Mouth) Diet Dinner Condition: Unstable MAGALIS 09/27/24 Transmitted 14:53 Acetaminophen Tablet PHA 09/27/24 Transmitted (Tylenol Tablet) 15:00 Nitroglycerin PHA 09/27/24 Transmitted Sublingual (Ntrostat 15:00 Morphine Sulfate PHA 09/27/24 Transmitted Injection 15:00 Stat Ekg For Chest MAGALIS 09/27/24 Transmitted Pain 14:53 Notify Md Of Changes [facility] 09/27/24 Transmitted From Base 14:53 Green Marketer For MAGALIS 09/27/24 Transmitted 24 Hours 14:53 Emergency Dysrhythmia MAGALIS 09/27/24 Transmitted Protocol 14:53 Rhythm Strips Once MAGALIS 09/27/24 Transmitted Every Shift 14:53 Oxygen By Nasal RT 09/27/24 Transmitted Cannula 14:53 Date of Service: Sep 27, 2024 Billing Provider: SADIA MALDONADO Common Visit Codes: 11499-NLEALVI INP/OBS CARE (HIGH) SADIA MALDONADO Sep 27, 2024 15:07
--- NOTE | 2024-09-27 15:08 | DVHNC2 ---
Central Line Recorder of insertion practice: Cat Scan Technologist Occupation of entry level management: Other (Resident Physician ) Indication: Volume resuscitation, Inability to obtain IV Room prepared for procedure: Yes Cat Scan Technologist performed hand hygien: Yes Maximal sterile barrier precau: Mask/Eye shield, Sterile gown, Cap, Sterlie gloves, Large sterlie drape Skin Preparation: Chlorhexidine gluconate Skin preparation completely dr: Yes Insertion site: Right Central line catheter type: [id number] dialysis Number of lumens: 3 Central line exchanged over a: Yes Antiseptic ointment applied to: Yes Post Assessment: Proper placement Informed consent obtained: No Risks/benefits/alt described: No UTO Consent Central access was obtained emergently Date of Service: Sep 27, 2024 Billing Provider: RON ADHIKARI MD Common Visit Codes: PROCEDURE ONLY Procedure Codes: 33793-MOOMNP NON-TUNNEL CV CATH SILVANO OSORIO Sep 27, 2024 15:08
[2024-09-27] MEDS ORDERED: IPRATROPIUM BROM 0.5 MG/2.5ML INH SOL NEB PRN (15:15)
[2024-09-27] MEDS ORDERED: ALBUTEROL SULF 2.5 MG/0.5ML(0.5%) NEB SOLN NEB PRN (15:15)
[2024-09-27] MEDS ORDERED: VANCOMYCIN PER PHARMACY 0 MG IV SCH (15:15)
--- NOTE | 2024-09-27 15:21 | DVHNC2 ---
Procedure - Endotracheal Intubation PROCEDURE SALES FINANCIAL ANALYST: Dr. Carvalho, resident physician ATTENDING PHYSICIAN: Dr. Ventura. In Attendance: Yes A time out was performed. My hands were washed immediately prior to the proced ure. I wore a surgical cap, mask with protective eyewear, gown and gloves throughout the procedure. The patient was placed on a library monitor including continuous pulse oximetry. Rapid Sequence Intubation was conducted. Cricoid pressure was maintained from time induction agent was given to time of cuff balloon inflation. Using a direct laryngoscope and a size 8 endotracheal tube with stylet, the patient was intubated on the first attempt. The stylet was removed and cuff balloon was inflated. Appropriate endotracheal tube position was confirmed by direct visualization of vocal cord passage, fogging of the tube, CO2 colormetric indicator and symmetric breath sounds. The tube was secured at 23 cm at the lips. Post intubation chest x-ray showed ET tube 3 cm from pallavi. SILVANO CARVALHO RESIDENT Sep 27, 2024 15:21
[2024-09-27 16:00] LABS: Basophils # (auto) 0 10 ^3/uL (0-0.2); Basophils % (auto) 0.1 % (0.0-2.0); Eosinophils # (auto) 0 10 ^3/uL (0-0.8); Eosinophils % (auto) 0.1 % (0.0-7.0); Hematocrit 34.5 % (36.0-46.0); Hemoglobin 10.4 g/dL (12.2-16.2); Lymphocytes # (auto) 1.5 10 ^3/uL (0.4-5.4); Lymphocytes % (auto) 10.7 % (10.0-50.0); Mean Corpuscular Hgb Conc. 30.3 g/dL (32.0-36.0); Mean Corpuscular Volume 79.3 fL (80.0-100.0); Monocytes # (auto) 0.7 10 ^3/uL (0-1.3); Monocytes % (auto) 5.1 % (0.0-12.0); Neutrophils # (auto) 11.9 10 ^3/uL (1.6-8.6); Nucleated Red Blood Cells % 0.3 %; Platelet Count (auto) 300 10^3/uL (140-450); Red Blood Cells 4.35 10^6/uL (4.0-5.20); Red Cell Distribution Width 21.7 % (11.8-14.3); White Blood Cell 14.2 10^3/uL (4.4-10.8)
[2024-09-27 16:32] LABS: Urine Bacteria MANY /hpf (None Seen); Urine Blood 2+ /uL (Negative); Urine Budding Yeast MODERATE /hpf (None Seen); Urine Clarity Ex.Turbid (Clear); Urine Color Orange (Yellow); Urine Mucus FEW (None Seen); Urine Protein, UAD 2+ (Negative); Urine Specific Gravity 1.022 (1.001-1.035); Urine Squamous Epithelial Cell FEW /hpf (<5); Urine Urobilinogen 12 mg/dL (Negative); Urine WBC 810 /HPF (0-5); Urine WBC Clumps PRESENT /hpf (None Seen)
[2024-09-27 16:49] LABS: Benzodiazephine Screen, Urine Pos (NEGATIVE)
[2024-09-27 16:54] LABS: Amphetamine Screen, Urine Neg (NEGATIVE); Barbiturate Scree,Urine Neg (NEGATIVE); Opiate Scree,Urine Pos (NEGATIVE); Phencyclidine Screen, Urine Neg (NEGATIVE)
[2024-09-27 16:55] LABS: Cannabinoid Screen, Urine Neg (NEGATIVE); Cocaine Screen, Urine Neg (NEGATIVE)
[2024-09-27] MEDS: CEFEPIME 2GM/50ML NS 50 ML IV ONE (17:27)
[2024-09-27] MEDS ORDERED: DEXTROSE (50%) 50ML SYRG IV PRN (17:45)
[2024-09-27] MEDS ORDERED: SODIUM CHLORIDE 0.9% 1,000 ML IV SCH (17:45)
[2024-09-27 17:46] LABS: Lipase 24 U/L (12-53)
[2024-09-27] MEDS ORDERED: ACCU-CHEK COMFORT CURVE STRIP VI SCH (18:00)
[2024-09-27] MEDS ORDERED: InsuLIN REG 1unit/0.01ml Soln (100units/ml) SC SCH (18:00)
[2024-09-27 18:40] LABS: COVID19 ANTIGEN SOFIA FIA NEGATIVE (NEGATIVE); Rapid Influenza A Negative (Negative); Rapid Influenza B Negative (Negative)
[2024-09-27] MEDS: LORazepam 2MG/ML-1ML VIAL IV PRN (20:30)
[2024-09-27] MEDS ORDERED: URSODIOL 500 MG PO SCH (22:00)
[2024-09-27] MEDS ORDERED: MYCOPHENOLATE 500 MG TAB PO SCH (22:00)
[2024-09-27] MEDS ORDERED: TACROLIMUS 2 MG PO SCH (22:00)
[2024-09-27] MEDS ORDERED: methylPREDNISolone SOD SUCC 40 MG/ML VL IV SCH (22:00)
[2024-09-28] MEDS ORDERED: LEVOTHYROXINE SODIUM 50 MCG TAB PO SCH (07:00)
[2024-09-28] MEDS ORDERED: ENOXAPARIN SOD 40 MG/0.4 ML SYRINGE SC SCH (10:00)
[2024-09-28] MEDS ORDERED: AZITHROMYCIN 500MG/ 250ML 250 ML IV SCH (10:00)
== END 2024-09-27 20:31 | DRG 871 ==
LOC: EDBD 11:15 → ER 11:26 → OVERFLOW 14:53
PROVIDERS: ADMIT Nurse Practitioner Family; ATTEND Nurse Practitioner Family
PROC: 06HY33Z Insertion of Infusion Device into Lower Vein, Percutaneous Approach (ICD-10-PCS; principal; 2024-09-27)
PROC: 5A12012 Performance of Cardiac Output, Single, Manual (ICD-10-PCS; 2024-09-27)
PROC: 0BH17EZ Insertion of Endotracheal Airway into Trachea, Via Natural or Artificial Opening (ICD-10-PCS; 2024-09-27)
PROC: 5A1935Z Respiratory Ventilation, Less than 24 Consecutive Hours (ICD-10-PCS; 2024-09-27)
DX: A41.9 Sepsis, unspecified organism (principal); J18.9 Pneumonia, unspecified organism; J96.20 Acute and chronic respiratory failure, unspecified whether with hypoxia or hypercapnia; N39.0 Urinary tract infection, site not specified; J44.0 Chronic obstructive pulmonary disease with (acute) lower respiratory infection; E87.20 Acidosis, unspecified; E03.9 Hypothyroidism, unspecified; E11.9 Type 2 diabetes mellitus without complications; Z20.822 Contact with and (suspected) exposure to COVID-19; K21.9 Gastro-esophageal reflux disease without esophagitis; Z87.442 Personal history of urinary calculi; Z51.5 Encounter for palliative care; Z88.1 Allergy status to other antibiotic agents; Z90.710 Acquired absence of both cervix and uterus
CPT/HCPCS: 31500; 36415; 36556; 71045; 80053; 80307; 80320; 81001; 83605; 83690; 83880; 84484; 85025; 85610; 85730; 87040; 87070; 87077; 87086; 87186; 87205; 87426; 87804; 94002; 96365; G0378; J0692